=== PATIENT | female | born 1945 | race Caucasian/White ===

== ENCOUNTER 2022-04-01 14:30 | Outpatient (CLI) | payer MEDICARE, BC, SELFPAY ==
--- OUTSIDE RECORDS SUMMARY | 2022-04-01 14:40 | XMS_ITS | Clinical Summary ---
:1945 Author Organization [facility] [place] [address] Care Team Providers Name Role Phone Unavailable Primary Care Provider Unavailable Allergies Active Allergy Reactions Severity Noted Date Comments Cefaclor 10/20/2006 Dust Mites 09/12/2007 Iodinated Contrast Media Diarrhea, Vomiting Low 12/31/2020 PATIENT HAS BEEN GETTING VISIPAQ UE W/O COMPLICATIO N. Lisinopril Cough 09/12/2007 Pioglitazone Nausea Only, Tremors 09/12/2007 Sulfa (Sulfonamide 09/12/2007 Antibiotics) Medications Medication Sig Dispensed Refills Start Date End Date Status ASPIRIN 81 MG take 1 tablet 90 3 07/25/2008 A ctive TABIndications: Type II (81mg) by oral or unspecified type route once daily diabetes mellitus without mention of complication, not stated as uncontrolled blood-glucose by Not Applicable 1 Device 0 11/25/2019 Active meterIndications: route. Dispense Controlled type 2 meter, test diabetes mellitus strips, lancets without complication, covered by pt with long-term current ins. E11.9 IDDM use of insulin (HC) type II - Test 3 times/day. Uncontrolled dm lancetsIndications: Type Test 3 times per 300 Each 3 02/26/20 20 Active 2 diabetes mellitus day. FREESTYLE without complication, LITE. 28 gauge As with long-term current covered by ins. use of insulin (HC) flash glucose scanning As directed. 1 Each 0 12/22/2020 Active reader (FreeStyle Aileen 2 [place]) miscIndications: Type 2 diabetes mellitus without complication, with long-term current use of insulin (HC) Ozempic penIndications: INJECT 1 MG 9 mL 3 03/04/2021 Active Type 2 diabetes mellitus SUBCUTANEOUS without complication, WEEKLY with long-term current use of insulin (HC) CaneIndications: Sprain Single Point Cane 1 Each 0 04/21/20 21 Active of medial collateral for home use. For ligament of left knee, 4-6 weeks. 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 use of insulin (HC) Insulin [place], USE FOUR TIMES 400 Each 3 07/02/2021 Active Disposable, (bd insulin DAILY WITH pen needle uf mini) 31 INSULIN gauge x 09/29Indications: Type 2 diabetes mellitus with complication (HC) benzonatate (TESSALON) TAKE 1 30 Capsule 0 08/23/2021 Active 100 mg CAPSULE(100 MG) capsuleIndications: BY MOUTH THREE Cough TIMES DAILY NEEDED FOR COUGH hydroCHLOROthiazide TAKE 1 TABLET BY 90 Tablet 2 08/23/2021 Active (HCTZ) 25 mg MOUTH EVERY DAY tabletIndications: Essential hypertension amLODIPine (NORVASC) 2.5 TAKE 1 TABLET BY 90 Tablet 2 08/23/19 22 Active mg tabletIndications: MOUTH EVERY DAY Essential hypertension blood sugar diagnostic TEST THREE TIMES 300 Each 3 08/23/2021 Active (FreeStyle Lite Strips) DAILY stripIndications: Type 2 diabetes mellitus without complication, with long-term current use of insulin (HC) insulin degludec, U-200, Inject 82 units 54 mL 0 2 Active (Tresiba FlexTouch subcutaneous once U-200) 200 unit/mL (3 daily. mL) penIndications: Type 2 diabetes mellitus without complication, with long-term current use of insulin (HC) atorvastatin (LIPITOR) Take 0.5 Tablets 45 Tablet 3 10/28/2021 Active 40 mg tabletIndications: (20 mg) by mouth Hyperlipidemia, at bedtime. unspecified hyperlipidemia type omeprazole (PRILOSEC) 20 Take 1 Capsule 90 Capsule 2 2 Active mg Delayed-Release (20 mg) by mouth capsuleIndications: once daily before Abdominal pain, a meal. epigastric, Esophagitis FreeStyle Aileen 2 CHANGE SENSOR 6 Each 3 11/17/2021 Active SensorIndications: Type EVERY 14 DAYS 2 diabetes mellitus without complication, with long-term current use of insulin (HC) mirtazapine (REMERON) 15 Take 1 Tablet (15 90 Tablet 1 022 Active mg tabletIndications: mg) by mouth at Anxiety bedtime. losartan (COZAAR) 100 mg Take 1 Tablet 90 Tablet 3 11/17/2021 Active tabletIndications: (100 mg) by mouth Hypertension, once daily. unspecified type, Type 2 diabetes mellitus without complication, with long-term current use of insulin (HC) insulin aspart, U-100, 50 units before 60 mL 3 12/14/2021 Active (NovoLOG Flexpen U-100 each meal Insulin) 100 unit/mL (3 mL) penIndications: Type 2 diabetes mellitus without complication, with long-term current use of insulin (HC) ferrous sulfate 325 mg Take 1 Tablet 90 Tablet 3 12/22/2021 Active delayed release (325 mg) by mouth tabletIndications: once daily with a Anemia due to acute meal. blood loss cyclobenzaprine Take 1 Tablet (5 15 tablet. 0 12/24/2021 Active (FLEXERIL) 5 mg mg) by mouth 2 tabletIndications: Neck times daily if muscle spasm needed for Muscle Spasm. furosemide (LASIX) 20 mg Take 1 Tablet (20 90 Tablet 3 022 Active tabletIndications: mg) by mouth Bilateral lower every morning. extremity edema, Weight gain, ARMSTRONG (dyspnea on exertion) DULoxetine (CYMBALTA) 60 Take 1 Capsule 90 Capsule 2 2 Active mg Delayed-release (60 mg) by mouth capsuleIndications: once daily. Dysthymic disorder metoprolol succinate Take 1 Tablet (50 90 Tablet 2 12/28/2021 Active (TOPROL XL) 50 mg mg) by mouth once sustained-release daily. tabletIndications: Essential hypertension loratadine (CLARITIN) 10 Take 1 Tablet (10 90 Tablet 2 022 Active mg tabletIndications: mg) by mouth once Allergic rhinitis, daily. unspecified seasonality, unspecified trigger hydrocortisone 2.5% Apply topically 60 g 0 12/28/2021 Active creamIndications: to affected Hemorrhoids, unspecified area(s) 2 times hemorrhoid type daily. As need for hemorrhoid Active Problems Problem Noted Date 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 08/25/2021 Depression, recurrent 08/25/2021 Type 2 diabetes mellitus with complication 11/05/2020 MCI (mild cognitive impairment) 09/18/2019 Overview: Memory testing on 09/18/19 Screening for colon cancer. BE every 5 years per GI. N ext due 201703/09/2017 Moderate osteopenia 11/28/2016 Type 2 diabetes mellitus without complication 12/02/19 16 Lung nodule. Follow up CT June 2016 stable. No fur ther imaging needed 06/02/2015 Overview: 4 mm nodule. Recommend repeat in 12 brunilda hs. Left phone message and sent mychart note. Kady Sawyer M.D. 06/02/2015 4:55 PM Dupuytren's contracture of both hands 12/25/2013 De Quervain's tenosynovitis, right 12/25/2013 Routine general medical examination at [facility] 02/19/2013 Overview: Nl dexa 2009. Consider repeat age 71/ Gr sebastian Sawyer M.D. 02/19/2013 11:48 AM SLEEP APNEA 11/2001 AHI -43, repeat 03/2904/16/2012 Unspecified cataract 05/10/2011 Sensorineural hearing loss, bilateral 01/17/2008 Dysthymic disorder 09/12/2007 Tobacco use disorder 09/12/2007 Personal history of colonic polyps 09/12/2007 Overview: Colonoscopy 05/2013 Incomplete to 18 cm, sharp angulation, recommend BE BE 07/2013 diverticulosis Unspecified essential hypertension 10/20/2006 Other and unspecified hyperlipidemia 10/20/2006 Resolved Problems Problem Noted Date Resolved Date SLEEP APNEA 11/2001 AHI -43 09/12/2007 04/16/2012 Encounters Date Type Specialty Care Team Description 03/11/2022 Office Visit Abraham Michael, AuD Hearing Aid 03/11/2022 Travel 03/03/2022 Refill Meera Richardson, Refill Request (Tresiba DO Flextouch U-200 ) 01/18/2022 Phone Office Visit Meera Phillips NP Failed Appointment 01/18/2022 Travel 01/13/2022 Office Visit Abraham Michael AuD Hearing Problem; Hearing Aid (Consult) 01/13/2022 Office Visit Abraham Michael AuD Hearing Problem 01/13/2022 Travel from Last 3 Months Immunizations Name Administration Dates Next Due AMB Influenza, IIV3 (Age >=3 04/17/2013 years)(Flu Clinic Only) Amb Influenza, Inactivated AIIV4 (Age 0904/01/2020 65+ Years) Preserv Free COVID-19 vaccine (Moderna 06/06/2021, 09/29/2020, 08/31/2020 100mcg/0.5mL) PF, MDV COVID-19 vaccine (Oree 10/28/2021 30mcg/0.3mL) 12YO+ FLIP-SUCROSE PF, MDV Hepatitis A (Adult) 08/05/2005, 10/06/2003 Hepatitis B (Adult) 09/03/2019, 02/25/2019 Influenza A (H1N1), Inactivated (Age 1207/03/2009 >=3 Years) Influenza Virus, Unspecified 04/16/2018 Influenza, High-dose Inactivated 04/20/2016, 06/18/2015, Influenza, IIV3 (Age >=3 years) 04/16/2018, 04/17/2013, 1210/2011, 05/10/2011, 05/14/2010, 05/25/2009, 04/29/2008, 06/04/2007, 07/21/2006, 08/06/2004, 05/23/2003, 05/20/2002 Influenza, Inactivated AIIV4 (Age 65+ 04/14/2021 Years) Preserv Free Influenza, Inactivated IIV3 (Age 65+ 04/01/2019, 03/28/2018, 06/02/2017 Years) Preserv Free Pneumococcal Poly,23-Valent 01/31/2012, 05/07/1998 (Pneumovax) Pneumococcal conj 13-Valent (Prevnar 06/18/2015 13) Td (Age >=7 Years) 05/07/1998 Td, Preservative Free (age >= 7 09/12/2007 Years) Tdap 01/31/2012 Zoster (Shingrix-RZV, recombinant) 07/03/2019, 04/01/2019 Zoster (Zostavax-ZVL, live) 09/03/2010 Family History Medical History Relation Name Comments Diabetes Brother 5 Type 1; eventual ly needed kidney transplant for diabetic nep hropathy Stroke Father Cancer-breast Maternal Aunt Cancer Mother stomach Cancer-breast Sister 3 Cancer-ovarian No Family History Relation Name Status Comments Brother 1 Alive Brother 2 (Age 28) diabetic Brother 3 (Age 32) MVA Brother 4 Alive Brother 5 Father Maternal Aunt Mother Sister 1 Alive Sister 2 Alive Sister 3 Social History Tobacco Use Types Packs/Day Years Used Date Current Every Day Smoker Cigarettes 0.25 20 Sta rted: 04/30/1967 Smokeless Tobacco: Never Used Tobacco Cessation: Ready to Quit: No; Co unseling Given: Yes Alcohol Use Standard Drinks/Week Comments Not Currently 0 (1 standard drink = 0.6 oz pure alcoho l) Alcohol Habits Answer Date Recorded How often do you have a drink containing alcohol? 2-4 times a month 11/14/2018 How many drinks containing alcohol do you have on a 1 or 2 11/14/2018 typical day when you are drinking? How often do you have six or more drinks on one Never 11/14/2018 occasion? Comment: Not asked Sex Assigned at Date Recorded Not on file COVID-19 Exposure Response Date Recorded In the last 10 days, have you been in contact with No / Unsu re 03/11/2022 11:59 AM CDT someone who was confirmed or suspected to have Coronavirus/COVID-19? 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 Respiratory Rate 16 04/20/2021 12:15 PM CDT Oxygen Saturation 99% 12/28/2021 11:21 AM CDT Inhaled Oxygen Concentration - - Weight 77.1 kg (170 lb) 12/28/2021 11:21 AM CDT Height 167.6 cm (5' 6) 08/04/2021 11:50 AM ONCOLOGY SPECIALIST Body Mass Index 27.44 08/04/2021 11:50 AM ONCOLOGY SPECIALIST Plan of Treatment Upcoming Encounters Date Type Specialty Care Team Description 04/07/2022 Office Visit Abraham Michael, AuD [facility] [address] [place] [phone] (Wo rk) Health Maintenance Due Date Last Done Comments Mammogram for age 45-75 12/03/2021 12/03/2020, 08/01/2018, 06/30/2017, Additional history exists Medicare Wellness for age 65+ 12/03/2021 12/03/2020, 2019, 05/27/2015 Tetanus booster 01/30/2022 01/31/2012, 09/12/2007, 05/07/1998 Influenza for age 65+ 03/17/2022 04/14/2021, 04/01/2020, 04/01/2019, Additional history exists Depression screening for age 12+ 07/01/2022 07/01/2021, , 06/28/2021, Additional history exists BMI (ht and wt on same day) for 08/04/2022 08/04/2021, 03/18, age 18+ 12/03/2020, Additional history exists Colonoscopy through age 75 05/18/2026 05/18/2021, , 03/10/2020, Additional history exists Lipids for age 45-75 08/04/2026 08/04/2021, 03/04/2020, 02/25/2019, Additional history exists Tdap Completed 01/31/2012 Pneumococcal series for age 65+ Completed 06/18/2015, 01/14, 05/07/1998 Zoster (shingles) series for age Completed 07/03/2019, , 50+ 09/03/2010 Hepatitis C screening for age Completed 11/10/2020, 2018 18-79 DEXA/DXA scan for age 65+ Completed 01/06/2021, 12/01/2015 , 01/07/2010 COVID-19 vaccine series Completed 10/28/2021, 06/06/2021, 09/29/2020, Additional history exists Goals Goal Patient Goal Associated Recent Patient-Stated? Author Type Problems Progress BLOOD Blood Pressure No Alberto, PRESSURE-SHIRLEYPamela LAU BP LESS THAN 130/80 Results Not on filefrom Last 3 Months Insurance Payer Benefit Plan / Subscriber ID Effective Dates Phone Addre ss Type Group MEDICARE PART A MEDICARE PART A [id number] 2011-Presen ATTN: CLAIMS - HB USE ONLY HB ONLY t [address] [place] [address] MEDICARE PART B MEDICARE PART B [id number] 2011-Presen ATTN: CLAIMS - HB USE ONLY HB ONLY t [address] [place] [address] [place] BL[place]OSS [id number] 2016-Presen [address] [address] [place], [place] [id number] BL[employer] [place]OSS BLUE CROSS [id number] 2016-[employer]en [address] [address] [place], [place] [id number] Advance Directives Documents on File Type Date Recorded 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
--- OUTSIDE RECORDS SUMMARY | 2022-04-01 14:40 | XMS_ITS | Continuity of Care Document ---
:1945 Author Organization [facility] Address [address] [address] [place] [address] Phone Care Team Providers Name Role Phone Leann PRASAD, Cassia Unavailable Unavailable Allergies, Adverse Reactions, Alerts Substance Reaction Status Criticality Iodinated Contrast Media Active No Info rmation pioglitazone Active No Information lisinopril Active No Information cefaclor Active No Information Sulfa (Sulfonamide Antibiotics) Active No Information Medications Medication Instructions Dosage Effective Dates Status Comment s (start - stop) Tresiba FlexTouch U-100 inject by 0.00 - Active insulin 100 unit/mL (3 mL) subcutaneous route subcutaneous pen as per insulin protocol loratadine 10 mg tablet take 2 tablet by 20 MG - Act charly oral route every day losartan 50 mg tablet take 1 tablet by 50 MG - Activ e oral route every day Kapspargo Sprinkle 50 mg take 1 capsule by 50 MG - A ctive capsule,extended release oral route every day Ozempic 1 mg/dose (2 mg/1.5 inject (1MG) by - Active mL) subcutaneous pen subcutaneous route injector every week on the same day of each week mirtazapine 7.5 mg tablet take 1 Tablet by 7.5 MG - A ctive oral route every day at bedtime omeprazole 20 mg take 1 capsule by 20 MG - Active capsule,delayed release ORAL route every day before a meal atorvastatin 40 mg tablet take 1 tablet by 40 MG - A ctive ORAL route every day amlodipine 2.5 mg tablet take 1 tablet by 2.5 MG - Ac tive oral route every day Vazalore 81 mg capsule - Active cyclobenzaprine 5 mg tablet take 1 tablet by 5 MG - Active oral route every day as needed hydrochlorothiazide 25 mg take 1 tablet by 25 MG - A ctive tablet oral route every day insulin aspart U-100 100 inject by 0.00 - Active unit/mL subcutaneous subcutaneous route cartridge per prescriber's instructions. Insulin dosing requires individualization. duloxetine 60 mg take 2 capsule by 120 MG - Active capsule,delayed release ORAL route every day Procedures Procedure Date Telephone E&M III 21-30 Min GENET Colonoscopy Flex; W/remov Les- Colonoscopy Flex; W/bx 1/mx Level Iv-surg Path Gross/micro Telephone E&M III 21-30 Min GENET Advance Directives Directive Yes / No Effective Date File Name No Information Encounters Encounter Practice Location Reason(s) Diagnoses Date Provider Provide rs Description For Visit Copied on Encounter [facility] No Information Hanouneh Digestive MD Greta ALVARADO, [address] [address], [facility] s, [place], [place], [place] [id number], [address], [place] [facility] tel:+2 [place], [place], [phone] , [place]. tel:[phone] Telephone E&M [facility] GI Liver cirrhosis [facility] Referring III 21-30 Min Digestive Symptoms secondary to Pr ovider: MD DE LEÓN Health CHRISTIANO, or NASHUnspecified 1 [address] Refe rral [address] Concerns cirrhosis of [address] [place]. [address], (chief liver [facility] complaint) Street s, [place], [place], [place] [id number], [address], [place] tel:+2 [place], [place], [id number] , [place]. tel: [phone] [facility] No Information Odilia RESIDENT CARE ASSISTANT Ref erring Digestive [facility] Essie. Provider: Health CHRISTIANO, Endoscopy [address] [facility] [address], [address] [place], [place], [place], 500, [address] [place] [id number], [place] [address], [place], [place], [place] tel: [phone] s, [place], [id number] , [place]. [address] tel: . [phone] tel:[phone] [facility] Sessile colonic Nov- Fuller Ref erring [facility] polypAbnormal MD [place]. Provid er: Greta ALVARADO, Endoscopy results of liver [address] [facility] PO [address] Center function [place]. [address], [facility] neoplasm of [place], [place], [place], transverse 500, [id number], colonBenign [facility] [place] neoplasm of [place], [place], tel: sigmoid [phone] colonPersonal , [place]. history of tel: colonic polyps [id number] [facility] No Information Leann Digestive MD Greta ALVARADO, [address] [address], [facility] Street s, [place], [place], [place] [id number], [address], [place] tel: [place], [place], [id number] , [place]. tel: [phone] Telephone E&M [facility] GI Abnormal LFTs Ivon gunn Referring III 21-30 Min Digestive Symptoms Provide r: MD GENET ALVARADO, or [address] Concerns [address] [facility] [place], [address], (chief [place] [address] [facility] complaint) Street [place], [place], [place], [facility] [address], [id number], [address] [place] , [place], tel: [place], [phone] tel:[phone] , [place]. [id number] tel: [phone] [facility] No Information [facility] MD Greta ALVARADO, [address] [address], [facility] s, [place], [place], [place] [id number], [address], [place] [facility] tel: is, [place], [id number] , [place]. tel: [phone] Family History Family Member Type Diagnosis Age At Onset Mother Problem (finding) Stomach Sister Problem (finding) Brother Problem (finding) Diabetes mellitus Daughter Problem (finding) Alive and well Son Problem (finding) Alive and well Mother Problem (finding) Brother Problem (finding) Colon polyps Brother Problem (finding) Father Problem (finding) Immunizations Vaccine Date Status Comments SARS-COV-2 (COVID-19) vaccine, administered N ote: [facility] bi-directional mRNA, spike protein, LNP, interf simona ; Source: Other preservative free, 100 mcg or 50 Registry mcg dose influenza, seasonal vaccine, administered Not e: [facility] bi-directional quadrivalent, adjuvanted, .5mL i nterface ; Source: Other dose, preservative free Registry SARS-COV-2 (COVID-19) vaccine, administered N ote: [facility] bi-directional mRNA, spike protein, LNP, interf simona ; Source: Other preservative free, 100 mcg or 50 Registry mcg dose SARS-COV-2 (COVID-19) vaccine, administered N ote: [facility] bi-directional mRNA, spike protein, LNP, interf simona ; Source: Other preservative free, 100 mcg/0.5mL Registry dose SARS-COV-2 (COVID-19) vaccine, administered N ote: [facility] bi-directional mRNA, spike protein, LNP, interf simona ; Source: Other preservative free, 100 mcg or 50 Registry mcg dose SARS-COV-2 (COVID-19) vaccine, administered N ote: [facility] bi-directional mRNA, spike protein, LNP, interf simona ; Source: Other preservative free, 100 mcg/0.5mL Registry dose influenza, seasonal vaccine, administered Not e: [facility] bi-directional quadrivalent, adjuvanted, .5mL i nterface ; Source: Other dose, preservative free Registry Engerix-B administered Note: [facility] bi-di rectional interface ; Sour ce: Other Registry zoster vaccine recombinant administered Note: [facility] bi-directional interface ; Sour ce: Other Registry Seasonal trivalent influenza administered Not e: [facility] bi-directional vaccine, adjuvanted, interface ; Source: Other preservative free Registry zoster vaccine recombinant administered Note: [facility] bi-directional interface ; Sour ce: Other Registry Engerix-B administered Note: [facility] bi-di rectional interface ; Sour ce: Other Registry Seasonal trivalent influenza administered Not e: [facility] bi-directional vaccine, adjuvanted, interface ; Source: Other preservative free Registry Seasonal trivalent influenza administered Not e: [facility] bi-directional vaccine, adjuvanted, interface ; Source: Other preservative free Registry influenza, high dose seasonal, administered N ote: [facility] bi-directional preservative-free interface ; So urce: Other Registry Prevnar 13 administered Note: [facility] bi-di rectional interface ; Sour ce: Other Registry influenza, high dose seasonal, administered N ote: [facility] bi-directional preservative-free interface ; So urce: Other Registry influenza, high dose seasonal, administered N ote: [facility] bi-directional preservative-free interface ; So urce: Other Registry Pneumovax 23 administered Note: [facility] bi-di rectional interface ; Sour ce: Other Registry tetanus toxoid, reduced administered Note: [place] IC bi-directional diphtheria toxoid, and acellular interface ; Source: Other pertussis vaccine, adsorbed Gretta stry Influenza, seasonal, injectable, administered Note: [facility] bi-directional preservative free interface ; So urce: Other Registry zoster vaccine, live administered Note: [facility] bi-directional interface ; Sour ce: Other Registry Influenza, seasonal, injectable administered Note: [facility] bi-directional interface ; Sour ce: Other Registry Afluria Qd administered Note: [facility] bi-directional interface ; Sour ce: Other Registry Novel [id number], all administered Not e: [facility] bi-directional formulations interface ; Sour ce: Other Registry Influenza, seasonal, injectable administered Note: [facility] bi-directional interface ; Sour ce: Other Registry Influenza, seasonal, injectable administered Note: [facility] bi-directional interface ; Sour ce: Other Registry tetanus and diphtheria toxoids, administered Note: [facility] bi-directional adsorbed, preservative free, for interface ; Source: Other adult use (5 Lf of tetanus Eyad try toxoid and 2 Lf of diphtheria toxoid) Influenza, seasonal, injectable administered Note: [facility] bi-directional interface ; Sour ce: Other Registry Influenza, seasonal, injectable administered Note: [facility] bi-directional interface ; Sour ce: Other Registry Havrix administered Note: [facility] bi-di rectional interface ; Sour ce: Other Registry Influenza, seasonal, injectable administered Note: [facility] bi-directional interface ; Sour ce: Other Registry Influenza, seasonal, injectable administered Note: MIIC bi-directional interface ; Sour ce: Other Registry Payers Payer name Insurance type Covered alliance party ID Authorization(s ) [employer] [place] [employer] [id number] Social History Type Description Quantity Date Captured Comments Alcohol Use Details Unknown Caffeine Use Details Unknown Tobacco Use Status Smoking Status No Information Sex Female Chief Complaint And Reason For Visit No Information Reason For Referral Reason For Referral No Information Plan Of Treatment Date Type Action Status Referral Ordered: ordered Hepatic Function Panel Appointment date/timeframe: 12/30/2021 Referral Ordered: ordered Hepatoma Protocol Appointment date/timeframe: First Available Referral Ordered: ordered AFP, Serum, Tumor Marker Appointment date/timeframe: 12/30/2021 Referral Ordered: ordered PT/INR Appointment date/timeframe: 12/30/2021 Referral Ordered: ordered CBC Appointment date/timeframe: 12/30/2021 Referral Ordered: ordered Creatinine Appointment date/timeframe: 12/30/2021 Referral Ordered: ordered Ultrasound Liver Appointment date/timeframe: 12/30/2021 Referral Ordered: ordered Liver Biopsy With Ultrasound Omer ordonez Appointment date/timeframe: 04/14/2021 Referral Ordered: ordered Antinuclear Antibodies, DAVID, IFA Appointment date/timeframe: 04/14/2021 Referral Ordered: ordered [id number]-1-[id number] Phenotype Appointment date/timeframe: 04/14/2021 Referral Ordered: ordered Antimitochondrial Ab (AMA), Qn Appointment date/timeframe: 04/14/2021 Referral Ordered: ordered Ferritin Appointment date/timeframe: 04/14/2021 Referral Ordered: ordered Colonoscopy Appointment date/timeframe: 05/18/2021 Referral Ordered: ordered Actin (Smooth Muscle) Antibody Appointment date/timeframe: 04/14/2021 History Of Present Illness Encounter Date Complaint History Of Present I llness GI Symptoms or Concerns 75 year old pema kiran consents for telephone followup of biopsy p roven SHIPMAN cirrhosis. Please refer to [facility] kennedy notes for full details. 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 Serology work-up of chronic liver disease negative. Patient do es not drink alcohol. She has poorly controlle d type II diabetes with HGA1C in 9ish range. Patient underwent percutaneous liver b iopsy on 04/20/2021. Path revealed steatohepat itis, characterized by: Moderate (55%) steat osis, Mild inflammatory activity (EZEKIEL activi ty score 4 out of 8 based on 2 points for stea tosis, 1 point for inflammation and 1 p oint for ballooning. Fibrosis/Stage: Cirr hosis (stage 4 of 4). Liver disease is com pensated. No history of ascites, GI bleeding or encephalopathy. PLT count within normal limits at 357,000. 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 No nathaniel radiographic evidence of portal h ypertension. Last US 12/2020 showed no fo jovanni liver lesion. Patient feels OK at baseline today. She has no complaints. Denies a bdominal pain, nausea or vomiting. No changes in bowel habits. No blood in the stool. Weight is stable. She is working with PCP and dietiti an to better manage diabetes.Medical his tory is significant for advanced adenomatous polyps. Last colonoscopy 05/2021. She is due for colonoscopy for polyp surveillance in thre e years. GI Symptoms or Concerns This is a 75 yea r old woman consents for telephone consultati on of abnormal LFT's. Consult requested by Dr Meera Richardson. Daughter is present on the phone. Review of medical chart with A llina reveals that patient has had chronically abnormal LFT's at least since 2014. Labs josh k in 2014 revealed ALK 135, ALT 53 and AST 42, Total Bilirubin 0.5. Labs in 11/2019 show ed ALK 119, ALT 40 and AST 36. Labs in 10/2020 showed ALK 245, ALT 70 and AST 83. Most recent labs 03/16/2021 showed ALK 206, ALT 77 and AST 127, Total Bili 1.1, albumin 3.3 and tota l protein 7.3. PLT count normal at 357,000. P atient is asymptomatic from liver standpoin ts. No known family history of liver dis ease. Patient's medical history is r emarkable for type II diabetes, hypertensi on and hyperlipidemia. She weighs 157 lb. No hi story of alcohol misuse. Patient drinks two g lasses of wine a month. Patient feels OK at baseline. Denies abdominal pain, nausea or vomi ting. No changes in bowel habits. Weight is re latively stable. US . Coarsen ed hepatic echotexture. Nodular contour of t he liver. The findings may reflect cirrhosis. P lease correlate with any pertinent clinical o r laboratory values.2. Surgically absent ga llbladder, spleen, and distal pancreas.3. R ight renal cyst. No hydronephrosisCT . Interval development of mild inflammatory stranding within the right lat eral conal fat adjacent to the hepatic flexure. Increased size of mildly prominent retroperit santana lymph nodes. Normal appendix. Findings a re concerning for colitis although colonoscopy should be considered for further evaluation. 2. Coarsened hepatic density consistent w ith chronic steatosis. Suspicion of perhaps mild developing cirrhosisColonoscopy 02/2020 revealed two small tubular adenom as, and one large 20 mm tubular adenoma and one small sessile serrated adenoma CT abdomen 1 . Hepatic steatosis2. Status p ost distal pancreatectomy, splenectomy, cholecy stectomy and hysterectomy.CT abdo men . Diffuse hepatic steatosis pa tchy geographic areas of focal fat deposition . No suspicious intrahepatic mass. Functional Status Date Functional Assessment No Information Instructions Date Instruction Additional Informati on Colon Cancer Prevention Related to Sessi le colonic polyp Colon Polyps Related to Sessile c olonic polyp Assessments Type Assessment Date No Information Patient Care Teams Name Effective Dates (start - stop) Status M chente No Information
--- OUTSIDE RECORDS SUMMARY | 2022-04-01 14:40 | XMS_ITS ---
:1945 Author Care Team Providers Name Role Phone DR. MISTY SANDOVAL Referring Provider [phone] DR. MARILEE LOVELACE Referring Provider [phone] Allergies Code Code System Name Reaction Severity Status Onset Ceclor ? ? Active ? House Dust Mite ? ? Active ? Iodinated Contrast Media ? ? Activ e ? 32874 RxNorm Lisinopril ? ? Active ? 87131 RxNorm Pioglitazone ? ? Active ? Sulfa (Sulfonamide ? ? Active ? Antibiotics) Notes: 03/28/2016: STATUS: Inactive Medications Name Status Start Date Stop Date ? ? amlodipine 2.5 mg tablet Active ? Not ramsey ilable Take 1 tablet every day by oral route. aspirin Active ? Not available Take 1 tablet daily atorvastatin 40 mg tablet Active ? Not av ailable Take 1 tablet every day by oral route. BD Insulin Pen Needle UF Active ? Not ramsey ilable blood sugar diagnostic strips Active ? No t available ciprofloxacin 250 mg tablet Active ? Not available Take 1 tablet every 12 hours by oral route. cyanocobalamin (vit B-12) 1,000 mcg sublingual tablet Active ? Not available Place by sublingual route. cyclobenzaprine 5 mg tablet Active ? Not available Take 1 tablet twice a day by oral route. duloxetine 60 mg capsule,delayed release Active ? Not available Take 1 capsule every day by oral route. fexofenadine 180 mg tablet Active ? Not a vailable Take 1 tablet every day by oral route. flash glucose scanning reader Active ? No t available flash glucose sensor kit Active ? Not ramsey ilable fluticasone propionate 50 mcg/actuation nasal spray,suspension A ctive ? Not available [place] 2 sprays every day by intranasal route. hydrochlorothiazide 25 mg tablet Active ? Not available Take 1 tablet every day by oral route. insulin aspart U-100 100 unit/mL subcutaneous cartridge Active ? Not available Inject by subcutaneous route. insulin degludec (U-200) 200 unit/mL (3 mL) subcutaneous pen Act charly ? Not available Inject by subcutaneous route. insulin needles (disposable) Active ? Not available lancets Active ? Not available losartan 50 mg tablet Active ? Not availa ble Take 1 tablet every day by oral route. metoprolol succinate Active ? Not availab le omeprazole 20 mg capsule,delayed release Active ? Not available Take 1 capsule every day by oral route. ondansetron 4 mg disintegrating tablet Active ? Not available Take 2 tablets every 12 hours by oral route. semaglutide 1 mg/dose (2 mg/1.5 mL) subcutaneous pen injector Ac tive ? Not available Inject by subcutaneous route. Sure Edge Blood Glucose Meter Active ? No t available Vitamin D3 25 mcg (1,000 unit) capsule Active ? Not available Take by oral route. Problems Name Status Onset Date Source ? 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 Myofascial Pain Active 08/01/2018 ? Arthralgia of Temporomandibular Joint Active 08/01/2018 ? Procedures Date Name Performed by ? ? [place] Teeth Extraction Information not available Results Lab Results None recorded. Past Encounters None recorded. Social History Tobacco Smoking Status Current Every Day Smoker Vaccine List Vaccine Type influenza, injectable, quadrivalent 04/16/2018 Plan of Care Reminders Provider Appointments None recorded. ? ? Lab None recorded. ? ? Referral None recorded. ? ? Procedures None recorded. ? ? Surgeries None recorded. ? ? Imaging None recorded. ? ? Vitals Height Weight BMI Blood Pressure 5 ft 6 in 153 lbs 24.7 kg/m2 144/86 mm[Hg]
[2022-04-01 19:26] LABS: Albumin* 3.5 g/dL (3.3-5.0); Chloride* 103 mmol/L (96-114); Sodium* 136 mmol/L (135-149)
[2022-04-01 19:27] LABS: Potassium* 3.7 mmol/L (3.6-5.1)
[2022-04-01 19:29] LABS: Alanine Aminotransferase* 33 U/L (4-35); Alkaline Phosphatase* 301 U/L (40-150); Aspartate Amino Transferase* 77 U/L (12-35); Bilirubin Direct* 0.6 mg/dL (0.0-0.5); Bilirubin Total* 1.4 mg/dL (0.1-1.5); Blood Urea Nitrogen* 14 mg/dL (7-30); Carbon Dioxide* 24 mmol/L (20-32); Creatinine* 0.9 mg/dL (0.5-1.5); Estimated Glomerular Filt Rate 67 ml/min; Glucose* 277 mg/dL (60-115); Total Protein* 7.7 g/dL (6.0-8.3)
[2022-04-01 19:30] LABS: Calcium* 8.1 mg/dL (8.4-10.6)
== END 2022-04-01 14:31 | disposition home or self-care (01) ==
LOC: NFLDREF 14:31
PROVIDERS: PCP Family Medicine; Visit Provider Family Medicine
DX: I10 Essential (primary) hypertension (principal); E78.5 Hyperlipidemia, unspecified; E11.9 Type 2 diabetes mellitus without complications; K74.60 Unspecified cirrhosis of liver
CPT/HCPCS: 80048; 80076

== ENCOUNTER 2022-04-05 10:45 | Outpatient (RCR) | payer MEDICARE, BC, SELFPAY | END 2022-07-19 10:54 | disposition home or self-care (01) | PROVIDERS: PCP Family Medicine; Visit Provider Family Medicine | DX: M25.561 Pain in right knee (principal); M25.562 Pain in left knee; Z51.89 Encounter for other specified aftercare | CPT/HCPCS: 97110; 97162 ==

== ENCOUNTER 2022-05-11 15:39 | Emergency (ER) | payer MEDICARE, BC, SELFPAY ==
[2022-05-11 16:23] VITALS: BP 177/71; PULSE 89; RESP 16; TEMP 36.5; O2SAT 97; BMI 25.2
[2022-05-11 18:23] VITALS: BP 176/80; PULSE 80; RESP 18; O2SAT 98
--- NOTE | 2022-05-11 18:31 | CRLHL7_ITS ---
For Patients: As a result of the Century Cures Act, medical imaging exams and procedure reports are released immediately into your electronic medical record. You may view this report before your referring provider. If you have questions, please contact your health care provider. Indication: Abdominal pain and distention for 2 weeks Technique: Volumetric multidetector CT images of the abdomen and pelvis were obtained after the administration of intravenous contrast. 79 cc Isovue 370 low osmolar intravenous contrast Comparison: CT abdomen and pelvis March 09, 2021 Findings: The lung bases are clear. There is marked hepatic enlargement with hepatic cirrhosis. 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 There is prior cholecystectomy with marked reservoir dilatation of the common bile duct. There is no evidence of radiopaque calculus within the bile ducts. There is likely prior splenectomy similar to prior exam. There is moderate chronic gastritis change appreciated with redemonstration of large multiloculated duodenal diverticulum similar to previous exam. The pancreas is moderately atrophic with mild prominence of the main pancreatic duct. The adrenal glands are unremarkable. Cystic changes of the kidneys are appreciated. There is no evidence of radiopaque calculus or obstructive uropathy. There is moderate to severe focal thickening and pericolonic inflammatory change of the cecum, ascending colon and transverse colon with dilated fluid-filled small bowel with enteric mucosal hyperemia and thickening. The appendix is unremarkable. There are moderate reactive retroperitoneal lymph nodes similar to previous exam. The aorta is non aneurysmal with scattered atherosclerotic calcification. The solid pelvic viscera are grossly unremarkable. There is trace perihepatic ascites fluid without evidence of significant ascites in the 4 quadrants of the abdomen. The anterior abdominal wall is grossly intact. The lumbar vertebral body heights are stable from comparison with minimal endplate Schmorl`s defects. There is no significant spondylolisthesis or displaced fracture. Impression: Redemonstration of severe hepatic cirrhosis with extensive portal vein collateral formation with prominent paraesophageal, short gastric, epigastric varices with a large recannulated umbilical vein and caput medusae transformation seen at the umbilicus. Moderate thickening and pericolonic inflammatory change of the ascending colon, cecum and proximal transverse colon which may represent developing colitis changes. There are additional somewhat prominent loops of central small bowel with minimal mucosal hyperemia which may represent additional enteritis changes. Moderate chronic gastritis changes with stable duodenal diverticulum. Prior cholecystectomy with marked reservoir dilatation of the common bile duct. Prior splenectomy. Please note that all CT scans at this facility use dose modulation, iterative reconstruction, and/or weight-based dosing when appropriate to reduce radiation dose to as low as reasonably achievable. Dictated by Jeferson Keen MD @ 05/11/2022 8:45:06 PM (Electronically Signed)
--- NOTE | 2022-05-11 18:35 | ED.NAVMDI ---
HPI - Nausea/Vomiting/Diarrhea General Time Seen by Provider: 18:36 Date Seen: 05/11/22 Chief complaint: Diarrhea Stated complaint: Stomach Problems/Diarrhea Time Seen by Provider: 05/11/22 18:25 Source: patient, RN notes reviewed and old records reviewed Mode of arrival: ambulatory Limitations: no limitations History of Present Illness HPI Narrative: Patient is a 76-year-old female with a history of cirrhosis of the liver, hyperlipidemia, type 2 diabetes and hypertension who comes to the emergency room for evaluation of abdominal pain. Patient states that she is had a larger abdomen for quite some time and has not increased suddenly in size. She does note that over the past few weeks she has increasing abdominal pain that is rather diffuse. She is having occasional episodes of diarrhea that are nonbloody. She notes no fever or chills. She notes a 7 lb weight loss this week because she has no appetite and has not been eating. Associated nausea: Yes Related Data Home Medications Medication Instructions Recorded Confirmed duloxetine 60 mg capsule,delayed 60 mg PO QDAY 01/13/22 04/01/22 release pen needle, diabetic 31 gauge x #50 ea 01/13/22 04/01/2209/29 (BD Ultra-Fine Mini Pen Needle) atorvastatin 40 mg tablet 20 mg PO QDAY 02/18/22 04/01/22 metoprolol succinate 50 mg 50 mg PO QDAY 02/18/22 04/01/22 tablet,extended release 24 hr mirtazapine 15 mg tablet 15 mg PO . 02/18/22 04/01/22 aspirin 81 mg chewable tablet 81 mg PO QDAY 04/01/22 04/01/22 blood sugar diagnostic (FreeStyle #10 ea 04/01/22 04/01/22 Lite Strips) flash glucose scanning reader #1 ea 04/01/22 (FreeStyle Aileen 2 [place]) flash glucose sensor (FreeStyle #1 ea 04/01/22 04/01/22 Aileen 2 Sensor kit) insulin degludec 200 unit/mL (3 50 unit subcut .HS 04/01/22 04/01/22 mL) subcutaneous pen (Tresiba FlexTouch U-200 insulin) losartan 50 mg tablet 50 mg PO DAILY 04/01/22 04/01/22 Previous Rx's Medication Instructions Recorded diphenoxylate-atropine 2.5 1 tab PO BID-TID #90 tabs 04/01/22 mg-0.025 mg tablet (Lomotil) furosemide 40 mg tablet (Lasix) 40 mg PO QAM #30 tabs 04/01/22 insulin aspart U-100 100 unit/mL 25 unit (0.25 mL) subcut TID #15 mL 04/01/22 (3 mL) subcutaneous pen (Novolog Flexpen U-100 Insulin aspart) Allergies Allergy/AdvReac Type Severity Reaction Status Date / Time Cephalosporins Allergy Mild Unknown Verified 05/11/22 16:27 gadodiamide Allergy Mild Unknown Verified 05/11/22 16:27 Sulfa (Sulfonamide Allergy Mild Unknown Verified 05/11/22 16:27 Antibiotics) cefaclor [From Ceclor] Allergy Unknown Unknown Verified 05/11/22 16:27 Review of Systems Status of ROS: Reports: 10 or more systems reviewed and unremarkable except as noted in History and below Narrative: A loss of appetite Const: Denies: fever or chills Eyes: Denies: change in vision ENMT: Denies: throat pain or difficulty swallowing Cardio: Denies: chest pain, palpitations or shortness of breath with exertion Resp: Denies: shortness of breath or cough GI: Reports: abdominal pain, nausea and diarrhea; Denies: difficulty swallowing : Denies: painful urination Musculo: Denies: back pain PFSH PFS Medical History (Updated 02/20/22 @ 21:17 by Wei Johnson MD) 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 History of colon polyps (03/10/20) History of solitary pulmonary nodule Hyperlipidemia Hypertension 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 Major depression, recurrent Mild cognitive impairment Obstructive sleep apnea Osteopenia Sensorineural hearing loss Type 2 diabetes mellitus Surgical History (Updated 02/09/22 @ 12:17 by Baljit Castano) History of arthroscopy of shoulder History of cholecystectomy (1984) History of hysterectomy History of oophorectomy (1997) History of resection of pancreas (1984) History of vaginal hysterectomy (1997) Status post cholecystectomy Family History (Updated 01/13/22 @ 23:45 by Wei Johnson MD) Other Colon cancer Diabetes Stroke Social History (Updated 02/20/22 @ 21:11 by Wei Johnson MD) Narrative: , 3 kids, smoker, retired, cognitive impairment Smoking Status: Current every day smoker How often do you have a drink containing alcohol: never AUDIT-C Alcohol total score: 0 Non-prescribed substance use: denies use Little interest or pleasure in doing things: several days Feeling down, depressed, or hopeless: several days Exam Narrative: Exam Narrative: Alert and oriented. Very pleasant. Nontoxic in appearance. Oral cavity moist mucous membranes Neck is supple without lymphadenopathy Heart with regular rate and rhythm Lungs lungs are clear to auscultation. Abdomen is protrude print it is firm diffuse tenderness. No rebound tenderness. Bowel sounds are present. Const: Vital Signs, click to edit/add: Vital Signs - 24 hr 05/11/22 16:23 05/11/22 18:23 05/11/22 20:30 Temperature 97.7 F Pulse Rate [Pulse Oximeter] 89 80 84 Respiratory Rate 16 18 18 Blood Pressure [Ri ght Upper Arm] 177/71 H 176/80 H 183/88 H Pulse Oximetry 97 98 97 Oxygen Delivery Me thod Room Air Room Air Room Air 05/11/22 19:00 05/11/22 20:00 Temperature Pulse Rate [Pulse Oximeter] 81 84 Respiratory Rate 18 Blood Pressure [Ri ght Upper Arm] 179/81 H 176/80 H Pulse Oximetry 97 97 Oxygen Delivery Me thod Documenting provider has reviewed patient's vital signs: yes Course Course Hospital Course: Will place IV, morphine and Zofran for discomfort. Will give 500 mL normal saline. Will check CBC, comprehensive panel, amylase, lipase, CRP, urinalysis. Plan on CT of the abdomen once creatinine returns and is in normal limits. Vital Signs Vital signs: Initial Vital Signs Temperature 97.7 F 05/11/22 16:23 Temperature Source Temporal Artery Scan 05/11/22 16:23 Pulse Rate 89 05/11/22 16:23 Respiratory Rate 16 05/11/22 16:23 Blood Pressure 177/71 H 05/11/22 16:23 Blood Pressure Mean 106 05/11/22 16:23 Blood Pressure Position Sitting 05/11/22 16:23 Pulse Oximetry 97 05/11/22 16:23 Oxygen Delivery Method 05/11/22 16:23 Vital Signs Temperature 97.7 F 05/11/22 16:23 Pulse Rate 89 05/11/22 16:23 Respiratory Rate 16 05/11/22 16:23 Blood Pressure 177/71 H 05/11/22 16:23 Pulse Oximetry 97 05/11/22 16:23 Oxygen Delivery Method 05/11/22 16:23 Temperature 97.7 F 05/11/22 16:23 Pulse Rate 84 05/11/22 20:30 Respiratory Rate 18 05/11/22 20:30 Blood Pressure 183/88 H 05/11/22 20:30 Pulse Oximetry 97 05/11/22 20:30 Oxygen Delivery Method 05/11/22 20:30 MDM - Nausea/Vomiting/Diarrhea MDM Narrative Medical decision making narrative: 1. Abdominal pain 2. Disposition-this case will be signed out to my partner Dr. Lundberg for evaluation and review of labs and radiological studies and disposition. Lab Data Labs: Lab Results 05/11/22 05/11/22 05/11/22 Range/Units 19:00 19:00 19:00 WBC 13.72 H (4.50-11.00) K/uL RBC 4.41 (4.00-5.20) m/uL Hgb 13.3 (12.0-16.0) gm/dL Hct 40.0 (33.0-51.0) % MCV 91 (80-100) fL MCH 30 (26-34) pg MCHC 33 (32-36) gm/dL RDW Coeff of Annie 17.2 H (11.5-15.5) % Plt Count 268 (140-440) K/uL Neut % (Auto) 64.7 (42.0-72.0) % Lymph % (Auto) 19.2 L (20-44) % Lander % (Auto) 13.2 H (0.0-11.0) % Eos % (Auto) 2.1 (0.0-7.0) % Baso % (Auto) 0.7 (0.0-3.0) % Neut # (Auto) 8.90 H (1.7-7.0) K/uL Lymph # (Auto) 2.60 (0.90-2.90) K/uL Lander # (Auto) 1.80 H (0.00-0.90) K/UL Eos # (Auto) 0.30 (0.00-0.50) K/uL Baso # (Auto) 0.10 (0.00-0.30) K/uL Abs Immat Gran (auto) 0.02 (0.00-0.30) K/uL Sodium 136 (135-149) mmol/L Potassium 3.1 L (3.6-5.1) mmol/L Chloride 103 (96-114) mmol/L Carbon Dioxide 21 (20-32) mmol/L BUN 26 (7-30) mg/dL Creatinine 1.1 (0.5-1.5) mg/dL Estimated Creat Clear 42.97 Estimated GFR 52 ml/min Glucose 191 H (60-115) mg/dL Lactate 1.7 (0.5-1.9) mmol/L Calcium 9.0 (8.4-10.6) mg/dL Total Bilirubin 1.2 (0.1-1.5) mg/dL Direct Bilirubin 0.3 (0.0-0.5) mg/dL AST 62 H (12-35) U/L ALT 32 (4-35) U/L Alkaline Phosphatase 301 H (40-150) U/L C-Reactive Protein < 0.5 L (0.5-1.0) mg/dL Total Protein 8.3 (6.0-8.3) g/dL Albumin 3.8 (3.3-5.0) g/dL Amylase 56 (18-89) U/L Lipase 103 (23-300) U/L Discharge Plan Discharge Prescriptions: No Action (DME) pen needle, diabetic [BD Ultra-Fine Mini Pen Needle] 31 gauge x 3/16 needle See Rx Instructions .ROUTE .MEDSUPPLY Qty: 50 Label Comments: USE FOUR TIMES DAILY WITH INSULIN Rx Instructions: As directed duloxetine 60 mg capsule,delayed release(DR/EC) 60 mg PO QDAY atorvastatin 40 mg tablet 20 mg PO QDAY metoprolol succinate 50 mg tablet extended release 24 hr 50 mg PO QDAY Label Comments: TAKE 1 TABLET BY MOUTH EVERY DAY mirtazapine 15 mg tablet 15 mg PO .hs losartan 50 mg tablet 50 mg PO DAILY aspirin 81 mg tablet,chewable 81 mg PO QDAY (DME) FreeStyle Aileen 2 [place] Misc See Rx Instructions .ROUTE .MEDSUPPLY Qty: 1 Label Comments: DIRECTED Rx Instructions: As directed (DME) FreeStyle Aileen 2 Sensor Kit See Rx Instructions .ROUTE .MEDSUPPLY Qty: 1 Label Comments: CHANGE SENSOR EVERY 14 DAYS. Rx Instructions: As directed (DME) FreeStyle Lite Strips Strip See Rx Instructions .ROUTE .MEDSUPPLY Qty: 10 Label Comments: TEST THREE TIMES DAILY Rx Instructions: As directed furosemide [Lasix] 40 mg tablet 40 mg PO QAM Qty: 30 1RF diphenoxylate-atropine [Lomotil] 2.5-0.025 mg tablet 1 tab PO BID-TID Qty: 90 0RF insulin aspart U-100 [Novolog Flexpen U-100 Insulin] 100 unit/mL (3 mL) insulin pen 25 unit subcut TID Qty: 15 0RF Tresiba FlexTouch U-200 200 unit/mL (3 mL) insulin pen 50 unit subcut .HS Follow Up/Referrals: Meera Richardson DO [Staff Physician] -
--- OUTSIDE RECORDS SUMMARY | 2022-05-11 18:50 | XMS_ITS ---
:1945 Author Care Team Providers Name Role Phone DR. MISTY SANDOVAL Referring Provider [phone] DR. MARILEE LOVELACE Referring Provider [phone] Allergies Code Code System Name Reaction Severity Status Onset Ceclor ? ? Active ? House Dust Mite ? ? Active ? Iodinated Contrast Media ? ? Activ e ? 78465 RxNorm Lisinopril ? ? Active ? 65086 RxNorm Pioglitazone ? ? Active ? Sulfa [...] nasal spray,suspension A ctive ? Not available [place] 2 sprays every day by intranasal route. [...] Procedures Date Name Performed by ? ? Calvin Teeth Extraction Information not available Results Lab [...]
--- OUTSIDE RECORDS SUMMARY | 2022-05-11 18:50 | XMS_ITS | Continuity of Care Document ---
:1945 Author Organization [facility] Address [address] [address] [place] [address] Phone Care Team Providers Name Role Phone [...] rs Description For Visit Copied on Encounter [facility] No Information Hanouneh Digestive MD Greta ALVARADO, [address] [address], [facility] s, [place], [place], [place] [id number], [address], [place] [facility] tel:+2 [place], [place], [phone] , [place]. tel:+ [phone] Telephone E&M [facility] GI Liver cirrhosis [facility] Referring III 21-30 Min Digestive Symptoms secondary to Pr ovider: MD DE LEÓN Health CHRISTIANO, or NASHUnspecified 1 [address]y. Refe rral [address] Concerns cirrhosis of [address]. [address], (chief liver [facility] complaint) Street s, [place], [place], [place] [id number], [address], [place] tel:+2 [place], [place], [phone] , [place]. 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 Provider: Health CHRISTIANO, Endoscopy [address] [facility] [address], [address], [address] [place], [place], [place], [address], [address] [place] [id number], [place] [address], [place], [place], [place] tel: [phone] [place], [place], [phone] , [place]. [address] tel: . [phone] tel:[phone] [facility] Sessile colonic Nov- Fuller Ref erring Digestive [facility] polypAbnormal MD [place]. Provid er: Greta ALVARADO, Endoscopy results of liver 1 [address] Re [facility] [address] Center function [place] Self. [address], [facility] neoplasm of [place], [place], [place], transverse 500, [id number], colonBenign [facility] [place] neoplasm of [place], [place], tel: sigmoid [phone] colonPersonal , [place]. history of tel: colonic polyps [phone] [facility] No Information Leann Digestive MD Greta ALVARADO, [address] [address], [facility] [address] s, [place], [place], [place] [id number], [address], [place] tel: [place], [place], [phone] , [place]. tel: [phone] Telephone E&M [facility] GI Abnormal LFTs Ivon gunn Referring III 21-30 Min Digestive Symptoms Provide r: MD GENET ALVARADO, or [address] Meera [address] Concerns [address] [place], [address], (chief [place] [address] [facility] complaint) [address] [place], [place], [place], [facility] [address], [id number], [address] [place] , [place], [place]: [place], [phone]. [phone] tel:7 , [place]. [phone] tel: [phone] [facility] No Information [facility] MD Greta ALVARADO, [address] [address], [facility] s, [place], [place], [place] [id number], [address], [place] [facility] tel: is, [place], [phone] , [place]. tel: [phone] Family History Family Member Type Diagnosis Age [...] Other Registry tetanus toxoid, reduced administered Note: OK IC bi-directional diphtheria toxoid, and acellular interface [...] interface ; Sour ce: Other Registry Novel [id number], all administered Not e: MIIC bi-directional formulations [...] Registry Payers Payer name Insurance type Covered green party ID Authorization(s ) Blue Cross [place] Blue BL [id number] Social History Type Description Quantity Date Captured [...] IFA Appointment date/timeframe: 04/14/2021 Referral Ordered: ordered [id number] Phenotype Appointment date/timeframe: 04/14/2021 Referral Ordered: ordered [...] Ultrasound/CT showed coarsened hepatic density 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 No [...]
--- OUTSIDE RECORDS SUMMARY | 2022-05-11 18:50 | XMS_ITS | Clinical Summary ---
:1945 Author Organization [employer] [facility] [place] [address] Care Team Providers Name Role Phone Pcp, No Primary Care Provider Unavailable Allergies Active Allergy [...] 0 12/22/2020 Active reader (FreeStyle Aileen 2 [place]) miscIndications: Type 2 diabetes mellitus without complication, [...] sugars 2 diabetes mellitus per without complication, instrumentation specialist's with long-term current directions. use of insulin (HC) Insulin [place], USE FOUR TIMES 400 Each 3 07/02/2021 [...] right 12/25/2013 Routine general medical examination at [facility] 02/19/2013 Overview: Nl dexa 2009. Consider repeat [...] Encounters Date Type Specialty Care Team Description 05/10/2022 Telephone Pcp, No Appointment Req uest 04/07/2022 Office Visit Abraham Michael, [facility] (Fitting) 04/07/2022 Travel 03/11/2022 Office Visit Abraham Michael, AuD Hearing Aid 03/11/2022 Travel 03/03/2022 Refill Meera Richardson DO Refi ll Request (Tresiba Flextouch U-200 ) from Last 3 Months Immunizations Name Administration Dates Next Due AMB Influenza, IIV3 (Age >=3 04/17/2013 years)(Flu Clinic Only) Amb Influenza, Inactivated AIIV4 (Age 0904/01/2020 65+ Years) Preserv Free COVID-19 vaccine (Moderna 06/06/2021, 09/29/2020, 08/31/2020 100mcg/0.5mL) PF, MDV COVID-19 vaccine (Zelnas 10/28/2021 30mcg/0.3mL) 12YO+ FLIP-SUCROSE PF, MDV Hepatitis A (Adult) 08/05/2005, 10/06/2003 Hepatitis B (Adult) 09/03/2019, 02/25/2019 Influenza A (H1N1), Inactivated (Age 1207/03/2009 >=3 Years) Influenza Virus, Unspecified 04/16/2018 Influenza, High-dose Inactivated 04/20/2016, 06/18/2015, Influenza, IIV3 (Age >=3 years) 04/16/2018, 04/17/2013, 10/2011, 05/10/2011, 05/14/2010, 05/25/2009, 04/29/2008, 06/04/2007, 07/21/2006, 08/06/2004, [...] Assigned at Date Recorded Not on file Obstetrics History Last Filed Vital Signs Vital Sign Reading Time Taken Comments Blood Pressure 117/57 12/28/2021 11:21 AM CDT Pulse 66 12/28/2021 11:21 AM CDT Temperature 36.6 ??C (97.9 ??F) 07/13/2021 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 Respiratory Rate 16 04/20/2021 12:15 PM CDT Oxygen Saturation 99% 12/28/2021 11:21 AM CDT Inhaled Oxygen Concentration - - Weight 77.1 kg (170 lb) 12/28/2021 11:21 AM CDT Height 167.6 cm (5' 6) 08/04/2021 11:50 AM SCHOOL SERVICES OFFICER Body Mass Index 27.44 08/04/2021 11:50 AM SCHOOL SERVICES OFFICER Plan of Treatment Upcoming Encounters Date Type Specialty Care Team Description 06/13/2022 Office Visit Abraham Michael, AuD [address] [place], [place] [phone] (Wo rk) Health Maintenance Due [...] 12/01/2015 , 01/07/2010 COVID-19 vaccine series Completed 04/05/2022, 10/28/2021, 06/06/2021, Additional history exists Goals Goal Patient Goal Associated Recent Patient-Stated? Author Type Problems Progress BLOOD Blood Pressure No Alberto, PRESSURE-SHIRLEY LAU BP LESS THAN 130/80 Results Not on filefrom Last 3 Months Insurance Payer Benefit Plan / Subscriber ID Effective Dates Phone Addre ss Type Group MEDICARE PART A MEDICARE PART A [id number] 2011-[employer] ATTN: CLAIMS - HB USE ONLY HB ONLY t [address] [place] [address] MEDICARE PART B MEDICARE PART B [id number] 2011-[employer] ATTN: CLAIMS - HB USE ONLY HB ONLY t [address] [place] [address] BLUE CROSS [place] BLUE CROSS [id number] 2016-[employer] [address] [address] [place], [place] [id number] BLUE CROSS BLUE CROSS [id number] 2016-[employer] [address] [address] [place], [place] [id number] Advance Directives Documents on File Type Date Recorded Patient Phlebotomist Associate Explanati on Healthcare Directive 11/02/2006 HEALTH CARE DIRECTIVE, [facility], 10/15 Care Teams Electrical Drafter Relationship Specialty Start Date End Date Pcp, No PCP - General 04/07/22 .
[2022-05-11] MEDS: 0.9 % SODIUM CHLORIDE 500 ML 500 ML IV (18:57)
[2022-05-11] MEDS: ONDANSETRON 2 MG/ML inj 4 MG IVP (18:58)
[2022-05-11] MEDS: MORPHINE 4 MG/ML INJ IVP (18:58)
[2022-05-11 19:00] VITALS: BP 179/81; PULSE 81; O2SAT 97
[2022-05-11 19:10] LABS: Basophils Percent Auto 0.7 % (0.0-3.0); Eosinophils Percent Auto 2.1 % (0.0-7.0); Hemoglobin* 13.3 gm/dL (12.0-16.0); Immature Granulocytes Abs Auto 0.02 K/uL (0.00-0.30); Lactate* 1.7 mmol/L (0.5-1.9); Lymphocytes Percent Auto 19.2 % (20-44); Mean Corpuscular HGB Conc 33 gm/dL (32-36); Mean Corpuscular Hemoglobin 30 pg (26-34); Mean Corpuscular Volume 91 fL (80-100); Monocytes Percent Auto 13.2 % (0.0-11.0); Neutrophils Percent Auto 64.7 % (42.0-72.0); Platelet Count* 268 K/uL (140-440); RDW Coefficient of Variation % 17.2 % (11.5-15.5); Red Blood Count 4.41 m/uL (4.00-5.20); White Blood Count* 13.72 K/uL (4.50-11.00)
[2022-05-11 19:14] LABS: Slide Review Reflex No
[2022-05-11 19:28] LABS: Chloride* 103 mmol/L (96-114)
[2022-05-11 19:29] LABS: Albumin* 3.8 g/dL (3.3-5.0); Sodium* 136 mmol/L (135-149)
[2022-05-11 19:30] LABS: Potassium* 3.1 mmol/L (3.6-5.1)
[2022-05-11 19:32] LABS: Alkaline Phosphatase* 301 U/L (40-150); Amylase* 56 U/L (18-89); Aspartate Amino Transferase* 62 U/L (12-35); Bilirubin Direct* 0.3 mg/dL (0.0-0.5); Bilirubin Total* 1.2 mg/dL (0.1-1.5); Blood Urea Nitrogen* 26 mg/dL (7-30); Carbon Dioxide* 21 mmol/L (20-32); Creatinine* 1.1 mg/dL (0.5-1.5); Est. Creatinine Clearance* 42.97; Estimated Glomerular Filt Rate 52 ml/min; Glucose* 191 mg/dL (60-115); Total Protein* 8.3 g/dL (6.0-8.3)
[2022-05-11 19:33] LABS: Alanine Aminotransferase* 32 U/L (4-35); Lipase* 103 U/L (23-300)
[2022-05-11 19:37] LABS: C Reactive Protein* < 0.5 mg/dL (0.5-1.0)
[2022-05-11 20:00] VITALS: BP 176/80; PULSE 84; RESP 18; O2SAT 97
[2022-05-11 20:30] VITALS: BP 183/88; PULSE 84; RESP 18; O2SAT 97
[2022-05-11] MEDS: HYDROmorphone 0.5 mg/0.5 ml inj IVP (20:32)
== END 2022-05-11 21:57 | disposition home or self-care (01) ==
PROVIDERS: Family Medicine; Emergency Provider Family Medicine; PCP Family Medicine
DX: R19.7 Diarrhea, unspecified (principal)
CPT/HCPCS: 36415; 74177; 80053; 81001; 82150; 82248; 83605; 83690; 85025; 86140; 94761; 96374; 96375; 99284; 99285; J1170; J2270; J2405; J7120; Q9967

== ENCOUNTER 2022-06-27 10:45 | Outpatient (CLI) | payer MEDICARE, BC, SELFPAY ==
--- NOTE | 2022-06-27 11:00 | CRLHL7_ITS ---
For Patients: As a result of the Century Cures Act, medical imaging exams and procedure reports are released immediately into your electronic medical record. You may view this report before your referring provider. If you have questions, please contact your health care provider. INDICATION: LIVER CIRRHOSIS SECONDARY TO SHIPMAN COMPARISON: none TECHNIQUE: Real time matos scale imaging and color Doppler analysis was performed of the right upper quadrant. FINDINGS: Cirrhotic liver morphology noted with lobular outer contour and diffusely coarsened internal echotexture. No suspicious intrahepatic mass. There is a normal appearance of the hepatic IVC and proximal abdominal aorta. There is moderate ascites. The gallbladder is absent. The common bile duct is of normal size and measures 8 mm in diameter at the level of the marta hepatis. The visualized pancreas appears normal. There is no evidence of a stone or hydronephrosis within the right kidney. Right renal cyst is present measuring 2.9 cm. The right kidney measures 11.0 cm in length. IMPRESSION: Cirrhotic liver with moderate ascites. Dictated by Wei Seals MD @ 06/27/2022 1:03:32 PM (Electronically Signed)
== END 2022-06-27 10:46 | disposition home or self-care (01) ==
LOC: US 10:47
PROVIDERS: Visit Provider Internal Medicine Gastroenterology
DX: K74.60 Unspecified cirrhosis of liver (principal); K75.81 Nonalcoholic steatohepatitis (NASH); R18.8 Other ascites
CPT/HCPCS: 76705

== ENCOUNTER 2022-07-09 14:45 | Inpatient (IN) | payer MEDICARE, BC, SELFPAY ==
[2022-07-09] VITALS (10 sets, daily range): BP systolic 122–194; BP diastolic 62–96; PULSE 79–98; RESP 18–26; TEMP 36.6–36.8; O2SAT 86–96; BMI 29.4; BMI 28.3
--- NOTE | 2022-07-09 15:20 | CRLHL7_ITS ---
For Patients: As a result of the Century Cures Act, medical imaging exams and procedure reports are released immediately into your electronic medical record. You may view this report before your referring provider. If you have questions, please contact your health care provider. INDICATION: Shortness of breath TECHNIQUE: Single view chest. FINDINGS: The lungs are clear. The heart, mediastinum and pulmonary vessels are of normal size. There is no evidence of pleural disease. IMPRESSION: Negative chest. Dictated by Matilda Law MD @ 07/09/2022 3:55:41 PM (Electronically Signed)
--- OUTSIDE RECORDS SUMMARY | 2022-07-09 15:30 | XMS_ITS | Continuity of Care Document ---
:1945 Author Organization [facility] Address [address] [address] [place] [address] Phone Care Team Providers Name Role Phone Cassia Noriega MD Unavailable Unavailable Allergies, Adverse Reactions, Alerts Substance [...] Procedure Date Telephone E&M III 21-30 Min MD DE LEÓN Colonoscopy Flex; W/remov Les- Colonoscopy Flex; W/bx 1/mx Level Iv-surg Path Gross/micro Telephone E&M III 21-30 Min MD DE LEÓN Advance Directives Directive Yes / No Effective Date File Name No Information Encounters Encounter Practice Location Reason(s) Diagnoses Date Provider Provide rs Description For Visit Copied on Encounter [facility] Greta ALVARADO, [address] [address], [facility] [place], [place], [place], [place] [id number], [address], [place] tel:+2 [place], [place], [phone] , [place]. tel:+ [phone] [facility] [place] Chronic liver [facility] disease MD Greta ALVARADO, [address] [address], [facility] [place], [place], [place], [place] [id number], [address], [place] tel:+2 [place], [place], [phone] , [place]. tel:+ [phone] Telephone E&M [facility] GI Liver cirrhosis [facility] Referring III 21-30 Min Digestive Symptoms secondary to Pr ovider: MD DE LEÓN [facility], or NASHUnspecified 1 [address]. Refe rral [address] Concerns cirrhosis of [address]. [address], (chief liver [facility] complaint) Street [place], [place], [place], [place] [id number], [address], [place] tel: is, [place], [phone] , [place]. tel: [phone] [facility] [place] No Information Nov-0 Odilia [employer] Ref erring [facility] Essie. Provider: Health [facility], Endoscopy [address] [place] [address], [address], [address] [place], [place], [place], [address], [address] [place] [id number], [place] [address], [place], [place], [place] tel: [phone] s, [place], [id number] , [place]. [phone] tel: . [phone] tel:[phone] [facility] [place] Sessile colonic Nov-0 Fuller Ref erring [facility] polypAbnormal MD Franklin. Provid er: Health PA, Endoscopy results of liver 1 [address] Re ferral [address] Center function [place] [address]. [address], studies[address]ign [address] [facility] neoplasm of [place], [place], [place], transverse 500, [id number], colonBenign [place] neoplasm of [place], [place], tel: sigmoid [phone] colonPersonal , [place]. history of tel: colonic polyps [id number] [facility] No Information [facility], [address] [address], [place] [address] [place], [place], [place], [place] [id number], [address], [place] tel: is, [place], [phone] , [place]. tel: [phone] Telephone E&M [facility] GI Abnormal LFTs Mar- Ivon gunn Referring III 21-30 Min Digestive Symptoms MD Provide r: MD GENET ALVARADO, or [address] Meera [address] [place], [address], (chief Criselda [address] [place] complaint) [address] [place], [place], [place], [place] [address], [id number] [place] , [place], tel: is, [place], [address]. [phone] tel: , . [phone] tel: [phone] [facility] No Information [facility] MD Greta ALVARADO, [address]. [address] [address], [facility] [place], [place], [place], [facility] [id number], [address], [facility] tel: is, [place], [phone] , . tel: [phone] Family History Family Member Type Diagnosis Age [...] Other Registry tetanus toxoid, reduced administered Note: ID IC bi-directional diphtheria toxoid, and acellular interface [...] interface ; Sour ce: Other Registry Novel [id number], all administered Not e: MIIC bi-directional formulations [...] Registry Payers Payer name Insurance type Covered democrat ID Authorization(s ) Blue Brandon Torres Martinez Liban DEWITT [id number] Social History Type Description Quantity Date Captured Comments Alcohol Use Details Unknown Caffeine Use Details Unknown Tobacco Use Status Smoking Status No Information Sex Female Chief Complaint And Reason For Visit No Information Reason For Referral Reason For Referral No Information Plan Of Treatment Date Type Action Status Referral Ordered: ordered Hepatic Function Panel Appointment date/timeframe: 06/15/2022 Referral Ordered: ordered Hepatoma Protocol Appointment date/timeframe: 06/15/2022 Referral Ordered: ordered AFP, Serum, Tumor Marker Appointment date/timeframe: 06/15/2022 Referral Ordered: ordered PT/INR Appointment date/timeframe: 06/15/2022 Referral Ordered: ordered CBC Appointment date/timeframe: 06/15/2022 Referral Ordered: ordered Creatinine Appointment date/timeframe: 06/15/2022 Referral Ordered: ordered Ultrasound Liver Appointment date/timeframe: 06/15/2022 Referral Ordered: ordered Liver Biopsy With Ultrasound Omer ordonez Appointment date/timeframe: 04/14/2021 Referral Ordered: ordered Antinuclear Antibodies, DAVID, IFA Appointment date/timeframe: 04/14/2021 Referral Ordered: ordered [id number]-[id number]-Vvqvjnumglo Phenotype Appointment date/timeframe: 04/14/2021 Referral Ordered: ordered Antimitochondrial Ab (AMA), Qn Appointment date/timeframe: 04/14/2021 Referral Ordered: ordered Ferritin Appointment date/timeframe: 04/14/2021 Referral Ordered: ordered Colonoscopy Appointment date/timeframe: 05/18/2021 Referral Ordered: ordered Actin (Smooth Muscle) Antibody Appointment date/timeframe: 04/14/2021 Appointment Jess Rocha BOOKED History Of Present Illness Encounter Date Complaint History Of Present I llness GI Symptoms or Concerns 75 year old woma n consents for telephone followup of biopsy p [...] Ultrasound/CT showed 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 No [...] 7.3. PLT count normal at 357,000. P gibran is asymptomatic from liver standpoin ts. No [...]
[2022-07-09 15:58] LABS: Basophils Percent Auto 0.8 % (0.0-3.0); Eosinophils Percent Auto 2.7 % (0.0-7.0); Hematocrit 26.5 % (33.0-51.0); Hemoglobin* 8.4 gm/dL (12.0-16.0); Immature Granulocytes Pct Auto 0.2 %; Lymphocytes Percent Auto 13.5 % (20-44); Mean Corpuscular HGB Conc 32 gm/dL (32-36); Mean Corpuscular Hemoglobin 30 pg (26-34); Mean Corpuscular Volume 93 fL (80-100); Monocytes Percent Auto 9.4 % (0.0-11.0); Neutrophils Percent Auto 73.4 % (42.0-72.0); Platelet Count* 242 K/uL (140-440); RDW Coefficient of Variation % 16.4 % (11.5-15.5); Red Blood Count 2.85 m/uL (4.00-5.20); White Blood Count* 13.67 K/uL (4.50-11.00)
[2022-07-09 15:59] LABS: HCO3 VBG 19 mmol/L (21-28); Lactate* 2.2 mmol/L (0.5-1.9); PCO2 VBG 32 mmHG (40-50); PO2 VBG 68.9 mmHG (25-47); pH VBG 7.381 (7.32-7.43)
[2022-07-09 16:02] LABS: Slide Review Reflex No
--- NOTE | 2022-07-09 16:15 | ED_ITS ---
HPI - General Adult General Date Seen: 07/09/22 Chief complaint: Shortness of Breath/Dyspnea Stated complaint: Shortness of breath, diarrhea Time Seen by Provider: 07/09/22 15:06 Source: patient and family Mode of arrival: ambulatory Limitations: no limitations History of Present Illness HPI narrative: Patient is a 76-year-old woman who is here with her son and her son's for evaluation of shortness of breath, diarrhea with possible blood loss. She was hospitalized at [facility] a few weeks ago and had a duodenal ulcer banded. She was started on Protonix although she admits she stopped taking that because she says it was giving her diarrhea. She reports multiple episodes of diarrhea which she says are black. She has abdominal distension which she says is been ongoing for a year and half, her son-in-law, who is a roster clerk in [place], says that she did have a CT scan which did not show any ascites, she does have liver enlargement related to SHIPMAN, but does not sound like there were any other abnormalities noted. She does feel like her abdominal distention is worse lately as well. She notes diarrhea which she reports is black, no visible blood. Her son-in-law reports that her weight previously was 70 kilos, her current weight is 185 kilos. She does feel that she has significant water weight. Her son-in-law says that he does not think that she takes her medica tions regularly. She lives independently, she has a son who lives locally who tries to help but it sounds as if he is not able to provide quite as much ill but she probably needs. Her apartment is a little disorderly and apparently not very clean. Related Data Home Medications Medication Instructions Recorded Confirmed duloxetine 60 mg capsule,delayed 60 mg PO QDAY 01/13/22 07/09/22 release pen needle, diabetic 31 gauge x #50 ea 01/13/22 05/24/2209/29 (BD Ultra-Fine Mini Pen Needle) atorvastatin 40 mg tablet 20 mg PO QDAY 02/18/22 07/09/22 blood sugar diagnostic (FreeStyle #10 ea 04/01/22 05/24/22 Lite Strips) flash glucose scanning reader #1 ea 04/01/22 05/24/22 (FreeStyle Aileen 2 [place]) flash glucose sensor (FreeStyle #1 ea 04/01/22 05/24/22 Aileen 2 Sensor kit) insulin degludec 200 unit/mL (3 50 unit subcut .HS 04/01/22 05/24/22 mL) subcutaneous pen (Tresiba FlexTouch U-200 insulin) amlodipine 2.5 mg tablet 2.5 mg PO QDAY 05/16/22 07/09/22 loratadine 10 mg tablet 10 mg PO QDAY 05/16/22 05/24/22 losartan 100 mg tablet 100 mg PO QDAY 05/16/22 05/24/22 clobetasol 0.05 % scalp solution 1 applic topical PRN 05/24/22 05/24/22 triamcinolone acetonide 0.1 % 1 applic topical PRN 05/24/22 05/24/22 topical cream hydrochlorothiazide 25 mg tablet 25 mg PO DAILY 07/09/22 07/09/22 metoprolol succinate 50 mg 50 mg PO DAILY 07/09/22 07/09/22 tablet,extended release 24 hr mirtazapine 15 mg tablet (Remeron) 15 mg PO DAILY 07/09/22 07/09/22 Previous Rx's Medication Instructions Recorded furosemide 40 mg tablet (Lasix) 40 mg PO QAM #30 tabs 04/01/22 insulin aspart U-100 100 unit/mL 25 unit (0.25 mL) subcut TID #15 mL 04/01/22 (3 mL) subcutaneous pen (Novolog Flexpen U-100 Insulin aspart) hyoscyamine sulfate 0.125 mg tablet 0.125 - 0.25 mg PO BID-QID PRN for 05/11/22 abdominal cramping #30 tabs metoprolol succinate 100 mg 100 mg PO QDAY #30 tabs 05/24/22 tablet,extended release 24 hr mirtazapine 30 mg tablet 30 mg PO QHS #30 tabs 05/24/22 ondansetron HCl 8 mg tablet 8 mg PO TID PRN nausea and 05/24/22 vomiting #30 tabs diphenoxylate-atropine 2.5 1 tab PO BID-TID #90 tabs 06/01/22 mg-0.025 mg tablet (Lomotil) Allergies Allergy/AdvReac Type Severity Reaction Status Date / Time Cephalosporins Allergy Mild Unknown Verified 05/24/22 11:55 gadodiamide Allergy Mild Unknown Verified 05/24/22 11:55 Sulfa (Sulfonamide Allergy Mild Unknown Verified 05/24/22 11:55 Antibiotics) cefaclor [From Ceclor] Allergy Unknown Unknown Verified 05/24/22 11:55 Review of Systems Status of ROS: Reports: 10 or more systems reviewed and unremarkable except as noted in History and below [facility] Medical History Chronic diarrhea 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 History of colon polyps (03/10/20) History of solitary pulmonary nodule Hyperlipidemia Hypertension 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 Major depression, recurrent Mild cognitive impairment Obstructive sleep apnea Osteopenia Sensorineural hearing loss Type 2 diabetes mellitus Surgical History History of arthroscopy of shoulder History of cholecystectomy (1984) History of hysterectomy History of oophorectomy (1997) History of resection of pancreas (1984) History of vaginal hysterectomy (1997) Status post cholecystectomy Family History Other Colon cancer Diabetes Stroke Social History Narrative: , 3 kids, smoker, retired, cognitive impairment Smoking Status: Current every day smoker How often do you have a drink containing alcohol: never AUDIT-C Alcohol total score: 0 Non-prescribed substance use: denies use Little interest or pleasure in doing things: several days Feeling down, depressed, or hopeless: several days Exam Narrative: Exam Narrative: Vital signs as noted above. In general, an alert, Elderly woman, tachypneic, increased work of breathing. Head: Normocephalic, atraumatic. Eyes: Pupils are equal reactive. Extraocular movements are full. Conjunctivae are Anicteric. Not significantly pale. ENT: Mucous membranes are A little dry. Neck: Supple without lymphadenopathy. Heart: Regular rate and rhythm. No obvious murmur. Lungs: Lungs are clear, she prefers to lay on her right side as it is easier to breathe. Breath sounds are decreased on the right. Abdomen: Abdomen is distended, nontender To palpation. Rectal exam: Stool is light brown to yellowish. He negative. No melena. Extremities: Bilateral lower extremity pitting edema. No erythema. Neurologic: Patient is alert and oriented to person and place. Speech is fluent. Face is symmetric. Moves all extremities equally. Affect: Normal. Skin: Warm and dry. Well perfused. Const: Vital Signs, click to edit/add: Vital Signs - 24 hr 07/09/22 14:52 07/09/22 16:33 07/09/22 16:30 Temperature 97.9 F 98.3 F Pulse Rate [Pulse Oximeter] 91 Respiratory Rate 26 H Blood Pressure [Ri ght Upper Arm] 188/85 H Pulse Oximetry 96 86 L Oxygen Delivery Me thod Room Air Room Air Oxygen Flow Rate 1 07/09/22 16:20 Temperature Pulse Rate [Pulse Oximeter] 98 Respiratory Rate 20 Blood Pressure [Ri ght Upper Arm] 194/86 H Pulse Oximetry 91 Oxygen Delivery Me thod Room Air Oxygen Flow Rate Documenting provider has reviewed patient's vital signs: yes Course Course Hospital Course: Patient had an IV placed, Reevaluation(s) Reevaluation #1: She had an EKG which by my review showed a normal sinus rhythm, ventricular rate of 85 beats per minute. No acute ST segment changes. Labs were drawn. She had a portable chest x-ray which was relatively unremarkable. No significant pulmonary edema, no pleural effusion. Venous gas shows a normal pH, suspect a compensated acidosis with a bicarb of 19, pCO2 of 32 given her tachypnea, though this could also be a compensated respiratory alkalosis. Her white blood cell count is mildly elevated at 13.7. Hemoglobin is stable at 8.4 based on reports of and hemoglobin of 8 on discharge from [facility]. Her INR is elevated at 1.4, she does not appear to be on anticoagulation and I suspect this is related to known liver disease. Metabolic panel showed a sodium of 141, potassium 3.8. Chloride was 117, CO2 was 16. BUN 19 creatinine 0.9. Blood sugar was normal on her metabolic panel at 68, but she did drop to a blood sugar in the 20s later in her ER course. She seemingly does not take her insulin with regularity, but must have taken it today. She did have something to eat and we also gave her an amp of D50. Lactate was elevated at 2.2 total bilirubin was elevated at 1.9, direct was 0.2. AST of 58, ALT of 29. Alk-phos of 226. Troponin was 0.04, CRP was 1. BNP was elevated at 17 70. Lipase was normal. TSH was normal. COVID was negative. I did do a type and screen, but given the stable hemoglobin and negative stool guaiac, I do not think she is actively bleeding. 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 She does not seem immediately to be in significant congestive heart failure. She is not showing signs of significant bronchospasm. I do not hear anything on exam to suggest pneumonia, and I do not see anything on x-ray. She does have a mildly elevated white blood cell count and lactate, raising the possibility of an infection. I did do cultures of blood in urine, but I am holding off on star ting antibiotics at present. Her D-dimer was markedly elevated at 15, raising the possibility of pulmonary embolism. She has worsening abdominal distension and his surgery of severe cirrhosis and portal hypertension. As such, I am going to get a CT scan of her chest to look for pulmonary embolism or other possible pulmonary causes for her shortness of breath and will also get a CT scan of her abdomen to evaluate for possible worsening of her underlying liver disease and ascites. Aside from her hypoglycemia, she was otherwise stable while in the emergency department. She did have O2 sats in the upper 80s here, so we put her on some oxygen. She will go to the floor from the CT scanner. I have discussed her care with Dr. Fuller who has accepted her for admission. Vital Signs Vital signs: Initial Vital Signs Respiratory Effort 07/09/22 14:50 Respiratory Pattern 07/09/22 14:50 Vital Signs Temperature 97.9 F 07/09/22 14:52 Pulse Rate 91 07/09/22 14:52 Respiratory Rate 26 H 07/09/22 14:52 Blood Pressure 188/85 H 07/09/22 14:52 Pulse Oximetry 96 07/09/22 14:52 Oxygen Delivery Method 07/09/22 14:52 Temperature 98.3 F 07/09/22 16:33 Pulse Rate 83 07/09/22 17:43 Respiratory Rate 18 07/09/22 17:43 Blood Pressure 155/62 H 07/09/22 17:43 Pulse Oximetry 92 07/09/22 17:43 Oxygen Delivery Method 07/09/22 17:43 Oxygen Flow Rate 2 07/09/22 17:40 Medical Decision Making Lab Data Labs: Lab Results 07/09/22 07/09/22 07/09/22 Range/Units 15:30 15:35 15:50 WBC 13.67 H (4.50-11.00) K/uL RBC 2.85 L (4.00-5.20) m/uL Hgb 8.4 L (12.0-16.0) gm/dL Hct 26.5 L (33.0-51.0) % MCV 93 (80-100) fL MCH 30 (26-34) pg MCHC 32 (32-36) gm/dL RDW Coeff of Annie 16.4 H (11.5-15.5) % Plt Count 242 (140-440) K/uL Neut % (Auto) 73.4 H (42.0-72.0) % Lymph % (Auto) 13.5 L (20-44) % [place] % (Auto) 9.4 (0.0-11.0) % Eos % (Auto) 2.7 (0.0-7.0) % Baso % (Auto) 0.8 (0.0-3.0) % Neut # (Auto) 10.00 H (1.7-7.0) K/uL Lymph # (Auto) 1.80 (0.90-2.90) K/uL [place] # (Auto) 1.30 H (0.00-0.90) K/UL Eos # (Auto) 0.40 (0.00-0.50) K/uL Baso # (Auto) 0.10 (0.00-0.30) K/uL INR 1.41 H (0.91-1.10) APTT 46 H (23-33) Seconds D-Dimer Quant (PE/DVT) 14.37 H (0.00-0.50) ug/ml VBG pH (7.32-7.43) VBG pCO2 (40-50) mmHG VBG pO2 (25-47) mmHG VBG HCO3 (21-28) mmol/L Sodium (135-149) mmol/L Potassium (3.6-5.1) mmol/L Chloride (96-114) mmol/L Carbon Dioxide (20-32) mmol/L BUN (7-30) mg/dL Creatinine (0.5-1.5) mg/dL Estimated Creat Clear Estimated GFR ml/min Glucose (60-115) mg/dL Lactate (0.5-1.9) mmol/L Calcium (8.4-10.6) mg/dL Total Bilirubin (0.1-1.5) mg/dL Direct Bilirubin (0.0-0.5) mg/dL AST (12-35) U/L ALT (4-35) U/L Alkaline Phosphatase (40-150) U/L Troponin I (0.01-0.04) ng/mL C-Reactive Protein (0.5-1.0) mg/dL NT-Pro-B Natriuret Pep pg/mL Total Protein (6.0-8.3) g/dL Albumin (3.3-5.0) g/dL Lipase (23-300) U/L Procalcitonin (<0.50) ng/mL TSH (0.270-4.200) uIU/mL SARS-CoV-2 (PCR) Negative SARS-CoV-2 (Negative) Blood Type Antibody Screen 07/09/22 07/09/22 07/09/22 Range/Units 15:50 15:50 15:50 WBC (4.50-11.00) K/uL RBC (4.00-5.20) m/uL Hgb (12.0-16.0) gm/dL Hct (33.0-51.0) % MCV (80-100) fL MCH (26-34) pg MCHC (32-36) gm/dL RDW Coeff of Annie (11.5-15.5) % Plt Count (140-440) K/uL Neut % (Auto) (42.0-72.0) % Lymph % (Auto) (20-44) % [place] % (Auto) (0.0-11.0) % Eos % (Auto) (0.0-7.0) % Baso % (Auto) (0.0-3.0) % Neut # (Auto) (1.7-7.0) K/uL Lymph # (Auto) (0.90-2.90) K/uL [place] # (Auto) (0.00-0.90) K/UL Eos # (Auto) (0.00-0.50) K/uL Baso # (Auto) (0.00-0.30) K/uL INR Cancelled (0.91-1.10) APTT Cancelled (23-33) Seconds D-Dimer Quant (PE/DVT) (0.00-0.50) ug/ml VBG pH (7.32-7.43) VBG pCO2 (40-50) mmHG VBG pO2 (25-47) mmHG VBG HCO3 (21-28) mmol/L Sodium 141 (135-149) mmol/L Potassium 3.8 (3.6-5.1) mmol/L Chloride 117 H (96-114) mmol/L Carbon Dioxide 16 L (20-32) mmol/L BUN 19 (7-30) mg/dL Creatinine 0.9 (0.5-1.5) mg/dL Estimated Creat Clear 47.27 Estimated GFR 67 ml/min Glucose 68 (60-115) mg/dL Lactate (0.5-1.9) mmol/L Calcium 8.2 L (8.4-10.6) mg/dL Total Bilirubin 1.9 H Cancelled (0.1-1.5) mg/dL Direct Bilirubin 0.2 Cancelled (0.0-0.5) mg/dL AST 58 H Cancelled (12-35) U/L ALT 29 Cancelled (4-35) U/L Alkaline Phosphatase 226 H Cancelled (40-150) U/L Troponin I 0.04 Cancelled (0.01-0.04) ng/mL C-Reactive Protein 1.0 (0.5-1.0) mg/dL NT-Pro-B Natriuret Pep 1770 Cancelled pg/mL Total Protein 7.7 Cancelled (6.0-8.3) g/dL Albumin 3.4 Cancelled (3.3-5.0) g/dL Lipase (23-300) U/L Procalcitonin (<0.50) ng/mL TSH (0.270-4.200) uIU/mL SARS-CoV-2 (PCR) (Negative) Blood Type Antibody Screen 07/09/22 07/09/22 07/09/22 Range/Units 15:50 15:50 15:50 WBC (4.50-11.00) K/uL RBC (4.00-5.20) m/uL Hgb (12.0-16.0) gm/dL Hct (33.0-51.0) % MCV (80-100) fL MCH (26-34) pg MCHC (32-36) gm/dL RDW Coeff of Annie (11.5-15.5) % Plt Count (140-440) K/uL Neut % (Auto) (42.0-72.0) % Lymph % (Auto) (20-44) % [place] % (Auto) (0.0-11.0) % Eos % (Auto) (0.0-7.0) % Baso % (Auto) (0.0-3.0) % Neut # (Auto) (1.7-7.0) K/uL Lymph # (Auto) (0.90-2.90) K/uL [place] # (Auto) (0.00-0.90) K/UL Eos # (Auto) (0.00-0.50) K/uL Baso # (Auto) (0.00-0.30) K/uL INR (0.91-1.10) APTT (23-33) Seconds D-Dimer Quant (PE/DVT) (0.00-0.50) ug/ml VBG pH 7.381 (7.32-7.43) VBG pCO2 32 L (40-50) mmHG VBG pO2 68.9 H (25-47) mmHG VBG HCO3 19 L (21-28) mmol/L Sodium (135-149) mmol/L Potassium (3.6-5.1) mmol/L Chloride (96-114) mmol/L Carbon Dioxide (20-32) mmol/L BUN (7-30) mg/dL Creatinine (0.5-1.5) mg/dL Estimated Creat Clear Estimated GFR ml/min Glucose (60-115) mg/dL Lactate 2.2 H (0.5-1.9) mmol/L Calcium (8.4-10.6) mg/dL Total Bilirubin (0.1-1.5) mg/dL Direct Bilirubin (0.0-0.5) mg/dL AST (12-35) U/L ALT (4-35) U/L Alkaline Phosphatase (40-150) U/L Troponin I (0.01-0.04) ng/mL C-Reactive Protein (0.5-1.0) mg/dL NT-Pro-B Natriuret Pep pg/mL Total Protein (6.0-8.3) g/dL Albumin (3.3-5.0) g/dL Lipase (23-300) U/L Procalcitonin (<0.50) ng/mL TSH 3.580 (0.270-4.200) uIU/mL SARS-CoV-2 (PCR) (Negative) Blood Type O Positive Antibody Screen NEGATIVE 07/09/22 Range/Units 15:50 WBC (4.50-11.00) K/uL RBC (4.00-5.20) m/uL Hgb (12.0-16.0) gm/dL Hct (33.0-51.0) % MCV (80-100) fL MCH (26-34) pg MCHC (32-36) gm/dL RDW Coeff of Annie (11.5-15.5) % Plt Count (140-440) K/uL Neut % (Auto) (42.0-72.0) % Lymph % (Auto) (20-44) % [place] % (Auto) (0.0-11.0) % Eos % (Auto) (0.0-7.0) % Baso % (Auto) (0.0-3.0) % Neut # (Auto) (1.7-7.0) K/uL Lymph # (Auto) (0.90-2.90) K/uL [place] # (Auto) (0.00-0.90) K/UL Eos # (Auto) (0.00-0.50) K/uL Baso # (Auto) (0.00-0.30) K/uL INR (0.91-1.10) APTT (23-33) Seconds D-Dimer Quant (PE/DVT) (0.00-0.50) ug/ml VBG pH (7.32-7.43) VBG pCO2 (40-50) mmHG VBG pO2 (25-47) mmHG VBG HCO3 (21-28) mmol/L Sodium (135-149) mmol/L Potassium (3.6-5.1) mmol/L Chloride (96-114) mmol/L Carbon Dioxide (20-32) mmol/L BUN (7-30) mg/dL Creatinine (0.5-1.5) mg/dL Estimated Creat Clear Estimated GFR ml/min Glucose (60-115) mg/dL Lactate (0.5-1.9) mmol/L Calcium (8.4-10.6) mg/dL Total Bilirubin (0.1-1.5) mg/dL Direct Bilirubin (0.0-0.5) mg/dL AST (12-35) U/L ALT (4-35) U/L Alkaline Phosphatase (40-150) U/L Troponin I (0.01-0.04) ng/mL C-Reactive Protein (0.5-1.0) mg/dL NT-Pro-B Natriuret Pep pg/mL Total Protein (6.0-8.3) g/dL Albumin (3.3-5.0) g/dL Lipase 58 (23-300) U/L Procalcitonin 0.09 (<0.50) ng/mL TSH (0.270-4.200) uIU/mL SARS-CoV-2 (PCR) (Negative) Blood Type Antibody Screen
[2022-07-09 16:20] LABS: SARS PCR* Negative SARS-CoV-2 (Negative)
[2022-07-09 16:26] LABS: Albumin* 3.4 g/dL (3.3-5.0); Chloride* 117 mmol/L (96-114); Sodium* 141 mmol/L (135-149)
[2022-07-09 16:27] LABS: Potassium* 3.8 mmol/L (3.6-5.1)
[2022-07-09 16:29] LABS: Bilirubin Direct* 0.2 mg/dL (0.0-0.5); Bilirubin Total* 1.9 mg/dL (0.1-1.5); Carbon Dioxide* 16 mmol/L (20-32); Creatinine* 0.9 mg/dL (0.5-1.5); Est. Creatinine Clearance* 47.27; Estimated Glomerular Filt Rate 67 ml/min; INR 1.41 (0.91-1.10); Total Protein* 7.7 g/dL (6.0-8.3)
[2022-07-09 16:30] LABS: Alanine Aminotransferase* 29 U/L (4-35); Alkaline Phosphatase* 226 U/L (40-150); Aspartate Amino Transferase* 58 U/L (12-35); Blood Urea Nitrogen* 19 mg/dL (7-30); Calcium* 8.2 mg/dL (8.4-10.6); Glucose* 68 mg/dL (60-115); Partial Thromboplastin Time* 46 Seconds (23-33)
--- NOTE | 2022-07-09 16:31 | ED.NURSE ---
Pt asked to go to [facility], did not have to go. Pt asking for food and drink, will wait except for small sips of water per Dr. Beard. Pt broke out in sweat however is afebrile. Dr. Beard updated on Pt status and VS. Will draw , heads up to house sup for admit.
[2022-07-09 16:37] LABS: D Dimer Quantitative* 14.37 ug/ml (0.00-0.50)
[2022-07-09 16:42] LABS: Troponin I* 0.04 ng/mL (0.01-0.04)
[2022-07-09 16:43] LABS: NT Pro B Type NatriureticPept* 1770 pg/mL
--- NOTE | 2022-07-09 16:52 | CRLHL7_ITS ---
For Patients: As a result of the Century Cures Act, medical imaging exams and procedure reports are released immediately into your electronic medical record. You may view this report before your referring provider. If you have questions, please contact your health care provider. INDICATION: Abdominal distension. [place]. Portal hypertension. Elevated D-dimer. Dyspnea. COMPARISON: A CT of the abdomen and pelvis dated May 11, 2022 and more remotely, March 09, 2021 TECHNIQUE: CT examination of the chest, abdomen and pelvis was performed following the uneventful intravenous administration of 95 cc of Isovue 370. Thin section axial images were obtained from the thoracic inlet through the pubic symphysis. Oral contrast was not administered. Sagittal coronal reformatted imaging was performed. The chest portion of the study was performed as a angiogram Please note that all CT scans at this facility use dose modulation, iterative reconstruction, and/or weight-based dosing when appropriate to reduce radiation dose to as low as reasonably achievable. FINDINGS: CHEST: The heart is enlarged. This is multi chamber including the right heart. There is no pericardial effusion. There is no mediastinal or hilar mass. Few prominent lymph nodes are noted which are likely reactive. Lung evaluation is somewhat limited by motion artifact. No focal consolidation, infiltrate or mass. Basilar opacities are probably all related atelectasis. No pleural effusion or pneumothorax. PULMONARY ARTERY DISTRIBUTION: No indication of acute pulmonary embolus. Peripheral vessels especially at the bases are poorly evaluated due to respiratory motion artifact. ABDOMEN AND PELVIS: LIVER/BILIARY SYSTEM:The liver is enlarged with morphologic evidence of cirrhosis. There is no focal mass. The gallbladder is absent. There is mild extrahepatic biliary ductal dilatation similar to the prior study ADRENALS: Normal KIDNEYS, URETERS and BLADDER:Normal left kidney. Right renal cyst. No hydronephrosis or hydroureter. The bladder appears normal SPLEEN:The spleen is surgically absent PANCREAS: The pancreas appears normal though there is probably been a distal pancreatectomy. RETROPERITONEUM and MESENTERY: Atherosclerotic vascular calcifications. GASTROINTESTINAL SYSTEM: There are varices at the esophagogastric junction which were present previously indicating portal hypertension. There is diffuse wall thickening of the entirety of the GI system. This is the stomach, small bowel and colon. This is probably due to portal hypertension and/or hypoproteinemia and possibly right heart failure. This represents a significant change since the prior study. Ascites has also worsened as has body wall edema. Incidental large duodenal diverticulum. PELVIS: No mass or adenopathy. Ascites noted. OSSEOUS STRUCTURES and ABDOMINAL WALL: No acute osseous findings. Body wall edema. OTHER: No free air IMPRESSION: 1. CHEST: There is no evidence of pulmonary embolus. Basilar atelectasis. No pleural effusion or pneumothorax. A few prominent lymph nodes are likely reactive hypertension specifically varices and ascites. The ascites has markedly worsened and body wall edema is new. There is also severe diffuse edema of the stomach, small bowel and colon which is probably due to portal hypertension, hypoproteinemia and right heart failure. All these findings can be due to progressive hepatic decompensation. The ascites, bowel wall edema and body wall edema have markedly worsened since April. Please note that all CT scans at this facility use dose modulation, iterative reconstruction, and/or weight-based dosing when appropriate to reduce radiation dose to as low as reasonably achievable. Dictated by Jeremias Landaverde MD @ 07/09/2022 7:27:54 PM (Electronically Signed)
[2022-07-09 17:11] LABS: Lipase* 58 U/L (23-300)
[2022-07-09] MEDS: DEXTROSE 50 % SYRINGE IVP (17:15)
--- NOTE | 2022-07-09 17:25 | ED.NURSE ---
Pt second episode of hot flash and sweating, afebrile, bedside blood glucose 22. Pt able to tolerate food and drink ok per block, amp d50 admin ivp, pt drinking oj and milk and is eating crackers and pears. Pt son at .
[2022-07-09 17:29] LABS: Procalcitonin* 0.09 ng/mL (<0.50)
--- NOTE | 2022-07-09 18:09 | P.IMHP_ITS ---
Hospitalist- H&P: HPI History of Present Illness Date Seen: 07/09/22 Chief complaint: Shortness of breath, diarrhea Narrative: ADMISSION HISTORY AND PHYSICAL - HOSPITALIST Chief Complaint: trouble breathing, weak HPI: 76-year-old with poorly controlled type 2 diabetes AND with biopsy-proven cirrhosis from non alcoholic fatty liver disease who presents with a 20 lb weight gain, increasing shortness of breath and weakness. Her last visit to [facility] was in May. She was recently hospitalized to [facility] for a duodenal ulcer. She isn't really eating well, she has been a little forgetful but nothing significant. Most of her history is gathered by her son and his hus band (MEDICAL DOCTOR) who are visiting from [place]. They are in her room tonight when I examined her and gathered history. No fevers, chills. Chronic diarrhea is noted. Blood sugars have been erratic. As high as 400 and as low as 22 in the emergency room today. A1c runs in the nines. For her recent admission to [facility], she had a duodenal ulcer clipped but did not receive blood products. She is supposed to be on Protonix 40 mg b.i.d., I do not think that is happening. There is no previous history of ascites with her chronic liver disease THUS she is not on spironolactone. She is on 40 mg of p.o. Lasix. She is on a three med regimen for HTN and insulin and OZEMPIC ([id number]) for DM. She has known varices and worsening portal hypertension. She lives alone. , retired. Three adult children. In the ED- -Lab abnormalities included a new leukocytosis, chronic anemia, markedly elevated D-dimer, elevated INR, AST, alk-phos and total bilirubin. The LFT elevations are not new. Ammonia level is normal. -in the ED she received a dextrose and fusion secondary to hypoglycemia -given the elevated D-dimer, I just instructed the ED to murri[place] CT her and send her to the floor. I've updated the PFSH, medications and allergies in the [place] tabs. INVESTIGATIONS: LABS/MICRO/ECG/IMAGING Afebrile since arrival Elevated blood pressure 188/85 Mildly tachypneic 26 but on room air 96% Pulse 91 Weight change, approximately 21 lb over the last few weeks. CBC is relevant for a leukocytosis of 13.6, previously 7.4 on June 09 ([facility]) Known anemia 8.4, previously 8.0 on June 09 Normal platelets INR 1.41 not on anticoagulation (last INR was 1.2 summer 2021) D-dimer 14.4 PH is 7.4 however evidence of mixed acid-base disorder Normal renal function. Hyperchloremic, mildly acidotic with a CO2 of 16. Lactate mildly elevated at 2.2 Elevated bilirubin 1.9 (this is not new; [facility] shows similar LFTs in summer 2021) Mild bump in the AST, 58 (not new) Alk-phos 226 (not new) Lipase normal Procalcitonin normal TSH normal A1c 9.5 on June 06 AFP was checked this last summer and was negative Previous hep C and hep B negative CAP CT There is no evidence of pulmonary embolus. Basilar atelectasis. No pleural effusion or pneumothorax. A few prominent lymph nodes are likely reactive. There are varices at the esophagogastric junction which were present previously indicating portal hypertension. There is diffuse wall thickening of the entirety of the GI system. This is the stomach, small bowel and colon. This is probably due to portal hypertension and/or hypoproteinemia and possibly right heart failure. This represents a significant change since the prior study. Ascites has also worsened as has body wall edema. Incidental large duodenal diverticulum. REVIEW OF SYSTEMS: 12-point ROS completed with patient and negative unless otherwise stated in HPI or below. PHYSICAL EXAM: CODE STATUS: FULL CODE CONSTITUTIONAL: SNORING. AWAKES, PLEASANT. DEFERS TO HER SONS FOR HISTORY, FALLS BACK TO SLEEP VITAL SIGNS: see record. HEENT: Normocephalic, atraumatic. PERRL, EOMI, conjunctivae pink, no scleral icterus. Ears and nose externally normal. Pharynx normal. NECK: No JVD. No carotid bruit, no thyromegaly, no adenopathy. CHEST: NO CRACKLES, WHEEZING, DIMINISHED HEART: S1 and S2 normal. No harsh murmurs. Edema 1-2+ ABDOMEN: PROTUBERANT. GOOD BOWEL SOUNDS. NONTENDER. MUSCULOSKELETAL: No gross joint deformity or swelling. NEURO: Cranial nerves intact. Grossly intact. No asymmetric findings. SKIN: No rashes, petechiae, concerning changes PSYCHIATRIC: Euthymic. ADMIT TO MEDSURG: FLOOR CARE DVT: COAGULOPATHY GIVEN LIVER DISEASE. SCDS. GI: PO intake, PPI Time spent: 70 minutes examining patient, conferring with family and patient, care staff, developing care plan [facility] Medical History (Updated 07/09/22 @ 21:29 by Kiara Fuller MD) Abdominal ascites Dupuytren's contracture of both hands (12/25/13) History of colon polyps (03/10/20) History of solitary pulmonary nodule Hyperlipidemia Hypertension Insomnia 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 Major depression, recurrent Mild cognitive impairment Obstructive sleep apnea Osteopenia Portal hypertension Sensorineural hearing loss Tobacco abuse Type 2 diabetes mellitus Surgical History History of arthroscopy of shoulder History of cholecystectomy (1984) History of hysterectomy History of oophorectomy (1997) History of resection of pancreas (1984) History of vaginal hysterectomy (1997) Status post cholecystectomy Family History Other Colon cancer Diabetes Stroke Social History (Updated 07/09/22 @ 21:29 by Kiara Fuller MD) Narrative: , 3 kids, smoker, retired, cognitive impairment not a drinker Highest level of school completed/degree received: Associate degree: occupational, technical, vocational program Smoking Status: Current every day smoker What tobacco products do you use: cigarettes How often do you have a drink containing alcohol: never AUDIT-C Alcohol total score: 0 Non-prescribed substance use: denies use Caffeine: Yes (2 cup/day) Little interest or pleasure in doing things: several days Feeling down, depressed, or hopeless: several days service: No Meds Home Medications and Allergies Home Medications Medication Instructions Recorded Confirmed Type duloxetine 60 mg capsule,delayed 60 mg PO QDAY 01/13/22 07/09/22 History release pen needle, diabetic 31 gauge x #50 ea 01/13/22 07/09/22 History 09/29 (BD Ultra-Fine Mini Pen Needle) atorvastatin 40 mg tablet 20 mg PO QDAY 02/18/22 07/09/22 History blood sugar diagnostic (FreeStyle #10 ea 04/01/22 07/09/22 History Lite Strips) flash glucose scanning reader #1 ea 04/01/22 07/09/22 History (FreeStyle Aileen 2 [place]) flash glucose sensor (FreeStyle #1 ea 04/01/22 07/09/22 History Aileen 2 Sensor kit) insulin degludec 200 unit/mL (3 50 unit subcut .HS 04/01/22 07/09/22 History mL) subcutaneous pen (Tresiba FlexTouch U-200 insulin) amlodipine 2.5 mg tablet 2.5 mg PO QDAY 05/16/22 07/09/22 History loratadine 10 mg tablet 10 mg PO QDAY 05/16/22 07/09/22 History losartan 100 mg tablet 100 mg PO QDAY 05/16/22 07/09/22 History clobetasol 0.05 % scalp solution 1 applic topical BID PRN 05/24/22 07/09/22 History triamcinolone acetonide 0.1 % 1 applic topical BID PRN 05/24/22 07/09/22 History topical cream hydrochlorothiazide 25 mg tablet 25 mg PO DAILY 07/09/22 07/09/22 History mirtazapine 15 mg tablet (Remeron) 15 mg PO DAILY 07/09/22 07/09/22 History Allergies Allergy/AdvReac Type Severity Reaction Status Date / Time Cephalosporins Allergy Mild Unknown Verified 05/24/22 11:55 gadodiamide Allergy Mild Unknown Verified 05/24/22 11:55 Sulfa (Sulfonamide Allergy Mild Unknown Verified 05/24/22 11:55 Antibiotics) cefaclor [From Ceclor] Allergy Unknown Unknown Verified 05/24/22 11:55 Exam Const: Vital Signs, click to edit/add: Vital Signs - 24 hr 07/09/22 14:52 07/09/22 16:33 07/09/22 16:30 Temperature 97.9 F 98.3 F Pulse Rate [Pulse Oximeter] 91 Respiratory Rate 26 H Blood Pressure [Ri ght Upper Arm] 188/85 H Pulse Oximetry 96 86 L Oxygen Delivery Me thod Room Air Room Air Oxygen Flow Rate 1 Hospitalist - H&P: Result Labs Labs: Short CBC 07/09/22 Range/Units 15:30 WBC 13.67 H (4.50-11.00) K/uL Hgb 8.4 L (12.0-16.0) gm/dL Hct 26.5 L (33.0-51.0) % Plt Count 242 (140-440) K/uL BMP 07/09/22 15:50 Sodium 141 Potassium 3.8 Chloride 117 H Carbon Dioxide 16 L BUN 19 Creatinine 0.9 Glucose 68 Calcium 8.2 L Cardiac Enzymes 07/09/22 07/09/22 Range/Units 15:50 15:50 Troponin I 0.04 Cancelled (0.01-0.04) ng/mL Liver Function 07/09/22 07/09/22 Range/Units 15:50 15:50 Total Bilirubin 1.9 H Cancelled (0.1-1.5) mg/dL Direct Bilirubin 0.2 Cancelled (0.0-0.5) mg/dL AST 58 H Cancelled (12-35) U/L ALT 29 Cancelled (4-35) U/L Alkaline Phosphatase 226 H Cancelled (40-150) U/L Albumin 3.4 Cancelled (3.3-5.0) g/dL Assessment and Plan Assessment and plan (1) 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: Problem comment: Decompensated. Needs guideline directed diuretic therapy. salt and fluid restriction. Consider GI consult. Classic manifestations: Fatigue, ascites, increasing INR, imaging findings of varices, gastropathy, portal hypertension, cognitive decline Patient underwent percutaneous liver biopsy on 04/20/2021. Path revealed steatohepatitis, characterized by: Moderate (55%) steatosis, Mild inflammatory activity (EZEKIEL activity score 4 out of 8 based on 2 points for steatosis, 1 point for inflammation and 1 point for ballooning. Fibrosis/Stage: Cirrhosis (stage 4 of 4) Status: Chronic (2) Abdominal ascites: Problem comment: 1 time dose of IV lasix -2/2 tachypnea. placing urinary catheter for accurate output measurement - transition to oral spironolactone/furosemide combination 2 gram sodium restriction/2L free water restriction 100 mg aldactone/40mg lasix PO q am consider therapeutic paracentesis -WITH WBC COUNT, CONSIDER SPB. no fever or significant pain tonight - check tap tomorrow - follow cultures and/or cover with rocephin? Telephone consult versus transfer to Gastroenterology Service Status: Acute (3) Portal hypertension: Problem comment: albumin infusion tonight; likely limited benefit. guideline directed therapy; GI consult needed Status: Acute (4) Type 2 diabetes mellitus: Problem comment: SSI/AccuChecks Tresiba and NovoLog - dosing is not clear on [id number] - OZEMPIC (pt family needs to bring in) needs SGLT2 initiation Status: Chronic (5) Mild cognitive impairment: Problem comment: Checking ammonia level Repeat [place] Discharge planning needs to include at least assisted living and or home health Status: Chronic (6) Hypertension: Problem comment: amlodipine 2.5 mg daily, hydrochlorothiazide 25 mg daily, losartan 100 mg daily, Toprol-XL 10 mg daily - ALL ON HOLD aldactone/lasix combination starting 07/10/22 Status: Chronic (7) Tobacco abuse: Status: Acute (8) Obstructive sleep apnea: Status: Chronic (9) Major depression, recurrent: Status: Chronic (10) Insomnia: Problem comment: continue mirtazapine Status: Acute
[2022-07-09] MEDS: FUROSEMIDE 10 MG/ML inj 80 MG IVP (21:29)
[2022-07-09] MEDS: PANTOPRAZOLE SODIUM 40 MG INJ 80 MG IVP (21:30)
[2022-07-09] MEDS: ATORVASTATIN CALCIUM 40 MG TABLET 20 MG PO (21:30)
[2022-07-09] MEDS: ALBUMIN HUMAN 25% 100 ML VIAL IV (21:31)
[2022-07-09 22:02] LABS: Appearance Urine Clear (Clear); Bilirubin Urine Negative (Negative); Blood Urine Trace-intact (Negative); Color Urine Yellow (Yellow); Glucose Urine Negative (Negative); Ketones Urine Negative (Negative); Leukocyte Esterase Urine Negative (Negative); Nitrite Urine Positive (Negative); Protein Urine Negative (Negative); Specific Gravity Urine 1.015 (1.000-1.030); Urobilinogen Urine 0.2 (0.2-1.0); pH Urine 5.5 (5.0-8.5)
[2022-07-09 22:31] LABS: Lab Add On Test New Spec Needed
[2022-07-09 22:42] LABS: Bacteria Urine Moderate; RBC Urine 0-2 (0-2)
[2022-07-09] MEDS: NICOTINE 14 mg PATCH 1 PATCH TRANSDERMA (22:48)
[2022-07-09] MEDS: OMEPRAZOLE 20 MG CAPSULE DR 40 MG PO (22:48)
[2022-07-09] MEDS: MELATONIN 3 MG TABLET PO (22:49)
[2022-07-10] VITALS (7 sets, daily range): BP systolic 122–184; BP diastolic 54–74; PULSE 80–96; RESP 14–20; TEMP 36.6–37.7; O2SAT 91–96
--- NOTE | 2022-07-10 00:07 | PC.NURSE ---
End of Shift: Patient pleasant and cooperative. Afebrile. Denies pain. Up to bathroom with SBA. Blood glucose 94 and 101, updated MD. Tolerating regular diet with no nausea. BM x1, Hemoccult negative. Blas patent. Able to wean patient off O2 and sats greater than 90% on room air.
--- NOTE | 2022-07-10 06:42 | PC.NURSE ---
Shift note: Pt denies pain during this shift, BPs slightly elevated, afebrile. Blas cath intact and draining pale urine.
[2022-07-10] MEDS: OMEPRAZOLE 20 MG CAPSULE DR 40 MG PO ×2 (08:06→21:11)
[2022-07-10 08:22] LABS: HCO3 VBG 22 mmol/L (21-28); Ionized Calcium* 1.06 mmol/L (1.11-1.30); Lactate* 0.7 mmol/L (0.5-1.9); PCO2 VBG 30 mmHG (40-50); PO2 VBG 53.7 mmHG (25-47); pH VBG 7.476 (7.32-7.43)
[2022-07-10 08:28] LABS: Hematocrit 24.4 % (33.0-51.0); Mean Corpuscular HGB Conc 32 gm/dL (32-36); Mean Corpuscular Hemoglobin 30 pg (26-34); Mean Corpuscular Volume 92 fL (80-100); Platelet Count* 229 K/uL (140-440); Red Blood Count 2.66 m/uL (4.00-5.20); White Blood Count* 10.78 K/uL (4.50-11.00)
[2022-07-10 08:37] LABS: Albumin* 3.4 g/dL (3.3-5.0)
[2022-07-10 08:38] LABS: Chloride* 115 mmol/L (96-114); Potassium* 3.4 mmol/L (3.6-5.1); Sodium* 141 mmol/L (135-149)
[2022-07-10 08:40] LABS: Alkaline Phosphatase* 215 U/L (40-150); Aspartate Amino Transferase* 59 U/L (12-35); Bilirubin Total* 1.7 mg/dL (0.1-1.5); Blood Urea Nitrogen* 20 mg/dL (7-30); Carbon Dioxide* 20 mmol/L (20-32); Cholesterol* 75 mg/dL (90-199); Creatinine* 0.9 mg/dL (0.5-1.5); Est. Creatinine Clearance* 47.27; Estimated Glomerular Filt Rate 67 ml/min; Glucose* 76 mg/dL (60-115); Total Protein* 7.3 g/dL (6.0-8.3)
[2022-07-10 08:41] LABS: Alanine Aminotransferase* 28 U/L (4-35); Calcium* 8.1 mg/dL (8.4-10.6); HDL Cholesterol* 32 mg/dL (>=50); LDL Cholesterol Calculated 29 mg/dL (<100); Magnesium* 1.7 mg/dL (1.5-2.6); Triglycerides* 68 mg/dL (40-149); Uric Acid* 8.8 mg/dL (2.2-8.4)
[2022-07-10 08:42] LABS: Hemoglobin A1C* 8.48 % (0-5.6)
[2022-07-10 08:46] LABS: Hemoglobin* 7.9 gm/dL (12.0-16.0); Slide Review Reflex No
[2022-07-10 08:52] LABS: Troponin I* 0.04 ng/mL (0.01-0.04)
[2022-07-10 09:28] LABS: Iron* 32 ug/dL (37-170)
[2022-07-10 09:37] LABS: Percent Iron Saturation 8 % (20-50); Total Iron Binding Capacity 376 ug/dL (265-497)
[2022-07-10] MEDS: DULOXETINE 30 MG CAPSULE DR 60 MG PO (10:05)
[2022-07-10] MEDS: ATORVASTATIN CALCIUM 40 MG TABLET 20 MG PO (10:06)
[2022-07-10] MEDS: FUROSEMIDE 40 MG TABLET PO (10:07)
[2022-07-10] MEDS: SPIRONOLACTONE 100 MG TABLET PO (10:07)
[2022-07-10] MEDS: MIRTAZAPINE 15 MG TABLET PO (10:08)
[2022-07-10] MEDS: NICOTINE 14 mg PATCH 1 PATCH TRANSDERMA (10:08)
[2022-07-10] MEDS: POTASSIUM BICARB 25 MEQ EFFERVESCENT TAB PO (11:24)
--- NOTE | 2022-07-10 14:53 | PC.NURSE ---
End of Shift: Patient pleasant and cooperative. Patient vitally stable, lung with crackles, BS WNL, IV SL. Patient 1 assist, walker, gb. Patient denied pain. Patient wilde, intact and draining, patient has had 2 mod loose BMs. Nicotine patch on right shoulder. Patient tolerating regular diet. Blood sugars 80 and 213. Tele=NSR.
--- NOTE | 2022-07-10 14:54 | P.IMPN_ITS ---
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 Needs guideline directed diuretic therapy. salt and fluid restriction. Consider GI consult. Classic manifestations: Fatigue, ascites, increasing INR, imaging findings of varices, gastropathy, portal hypertension, cognitive decline? Hepatic encephalopathy possible despite normal ammonia MELD 13 (normal sodium, creatine, elevated INR and TB) Patient underwent percutaneous liver biopsy on 04/20/2021. Path revealed steatohepatitis, characterized by: Moderate (55%) steatosis, Mild inflammatory activity (EZEKIEL activity score 4 out of 8 based on 2 points for steatosis, 1 point for inflammation and 1 point for ballooning. Fibrosis/Stage: Cirrhosis (stage 4 of 4) Status: Chronic (2) Abdominal ascites: Problem details: 1 time dose of IV lasix -2/2 tachypnea. placing urinary catheter for accurate output measurement - transition to oral spironolactone/furosemide combination 2 gram sodium restriction/2L free water restriction 100 mg aldactone/40mg lasix PO q am Surgery recommends against paracentesis. If clinically ill start empiric therapy with ceftriaxone for 5 days Status: Acute (3) H/O: GI bleed: Problem details: Duodenal ulcer; clipped. [facility]. May 2022. No blood products. IV octreotide, ppi. As an aside, Has known varices but good collaterals and has never blood from them. Status: Acute (4) Mild cognitive impairment: Problem details: Ammonia level normal tonight. As high as 45 in the summer of 2021. Poor candidate for lactulose as patient has chronic diarrhea Repeat [place] Discharge planning needs to include at least assisted living and or home health Status: Chronic (5) Type 2 diabetes mellitus: Problem details: Poor glucose control as an outpatient with both hyper and hypoglycemia episodes. With cognitive impairment uncertain how well the patient can manage her diabetes SSI/AccuChecks Tresiba and NovoLog - dosing is not clear on [id number] - OZEMPIC (pt family needs to bring in) needs SGLT2 initiation Status: Chronic (6) Hypertension: Problem details: amlodipine 2.5 mg daily, hydrochlorothiazide 25 mg daily, losartan 100 mg daily, Toprol-XL 10 mg daily - ALL ON HOLD aldactone/lasix combination starting 07/10/22 Status: Chronic (7) Portal hypertension: Problem details: albumin infusion last night. guideline directed therapy; GI consult needed Status: Acute (8) Acute blood loss anemia (ABLA): Problem details: From May 2022 GI bleed. Stable tonight, 07/09/2022. At risk for clinically significant GI bleeding from known gastropathy and varices. Current hemoglobin 7.9. Stool guaiacs negative x3 since admission. Monitor for evidence of bleeding. High risk for bleeding from esophageal varices. Status: Acute Plan Patient is admitted to the hospital for medical management of ascites, cirrhosis, complications including possible bacterial peritonitis, blood-loss anemia, hepatic encephalopathy. Patient is clinically improved overnight so will continue to monitor and manage with appropriate therapy for end-stage liver disease. Also continue to assess patient's ability to manage what is fairly challenging medical problems including diabetes mellitus and end-stage liver disease. Time Spent With Patient Total time spent: Total time spent today is 50 minutes, 30 minutes in coordination care discussing with patient and family ongoing evaluation management of cirrhosis. Subjective Date Seen: 07/10/22 Interval history: 76-year-old female with cirrhosis due to SHIPMAN admitted to the hospital for increase abdominal swelling, dyspnea, somnolence. Initial evaluation showed that she does have on CT scan edema of the bowel wall as well as ascites. This has progressed over the last 2 months since her last CT scan. Surgery did not feel that there was a large of pocket of ascites fluid to performs paracentesis. Patient is had a diagnosis of cirrhosis for at least a couple years. A year ago she was seen by [place] [facility] and had workup of her cirrhosis with the ultimate diagnosis of cirrhosis due to SHIPMAN. She has not had any known complications until the last couple months when she has developed ascites, esophageal varices, possible hepatic encephalopathy with her current somnolence. She was hospitalized at [facility] 1 month ago with bleeding from a duodenal ulcer. Esophageal varices were noted at the time but not bleeding. She lives independently. Today she is here with her son and [id number] who live in [place] and her son who lives in [place]. Exam Narrative: Exam Narrative: She is alert and appears in no distress. She is oriented to her circumstances. Speech is normal except for slight slurring of her words. Eyes are normal. No scleral icterus. Oropharynx is normal. Neck is supple out mass or adenopathy. Respirations are clear to auscultation without wheezing rales or rhonchi. Cardiovascular: S1, S2, regular rate and rhythm. No murmur gallop or rub. Abdomen is protuberant. Palpation shows mild diffuse tenderness in her abdomen. I do not palpate a mass. Her ascites is moderately tense. Extremities with trace edema in her extremities. No asterixis. Const: Vital Signs, click to edit/add: Vital Signs - 24 hr 07/09/22 16:33 07/09/22 16:30 07/09/22 16:20 Temperature 98.3 F Pulse Rate Pulse Rate [Left A pical] Pulse Rate [Pulse Oximeter] 98 Pulse Rate [orthos tatic lying Pulse Oximeter] Pulse Rate [orthos tatic sitting Puls e Oximeter] Pulse Rate [orthos tatic standing Pul se Oximeter] Respiratory Rate 20 Blood Pressure [Le ft Arm] Blood Pressure [Ri ght Arm] Blood Pressure [Ri ght Upper Arm] 194/86 H Blood Pressure [or thostatic lying Ri ght Arm] Blood Pressure [or thostatic sitting Right Arm] Blood Pressure [or thostatic standing Right Arm] Pulse Oximetry 86 L 91 Oxygen Delivery Me thod Room Air Room Air Oxygen Flow Rate 1 07/09/22 17:40 07/09/22 17:07 07/09/22 17:43 Temperature Pulse Rate Pulse Rate [Left A pical] Pulse Rate [Pulse Oximeter] 94 83 Pulse Rate [orthos tatic lying Pulse Oximeter] Pulse Rate [orthos tatic sitting Puls e Oximeter] Pulse Rate [orthos tatic standing Pul se Oximeter] Respiratory Rate 20 18 Blood Pressure [Le ft Arm] Blood Pressure [Ri ght Arm] Blood Pressure [Ri ght Upper Arm] 122/96 H 155/62 H Blood Pressure [or thostatic lying Ri ght Arm] Blood Pressure [or thostatic sitting Right Arm] Blood Pressure [or thostatic standing Right Arm] Pulse Oximetry 92 89 92 Oxygen Delivery Me thod Nasal Cannula Nasal Cannula Oxygen Flow Rate 2 07/09/22 18:25 07/09/22 19:00 07/09/22 18:25 Temperature 97.8 F Pulse Rate 80 Pulse Rate [Left A pical] 86 Pulse Rate [Pulse Oximeter] Pulse Rate [orthos tatic lying Pulse Oximeter] Pulse Rate [orthos tatic sitting Puls e Oximeter] Pulse Rate [orthos tatic standing Pul se Oximeter] Respiratory Rate 20 Blood Pressure [Le ft Arm] Blood Pressure [Ri ght Arm] 146/70 H Blood Pressure [Ri ght Upper Arm] Blood Pressure [or thostatic lying Ri ght Arm] Blood Pressure [or thostatic sitting Right Arm] Blood Pressure [or thostatic standing Right Arm] Pulse Oximetry 95 94 Oxygen Delivery Me thod Nasal Cannula Room Air Oxygen Flow Rate 1 07/09/22 23:00 07/09/22 23:00 07/09/22 23:00 Temperature 98.2 F Pulse Rate Pulse Rate [Left A pical] 79 Pulse Rate [Pulse Oximeter] Pulse Rate [orthos tatic lying Pulse Oximeter] Pulse Rate [orthos tatic sitting Puls e Oximeter] Pulse Rate [orthos tatic standing Pul se Oximeter] Respiratory Rate 20 20 Blood Pressure [Le ft Arm] Blood Pressure [Ri ght Arm] 158/77 H Blood Pressure [Ri ght Upper Arm] Blood Pressure [or thostatic lying Ri ght Arm] Blood Pressure [or thostatic sitting Right Arm] Blood Pressure [or thostatic standing Right Arm] Pulse Oximetry 92 92 92 Oxygen Delivery Me thod Room Air Room Air Oxygen Flow Rate 07/10/22 03:00 07/10/22 06:37 07/10/22 07:00 Temperature 98 F Pulse Rate Pulse Rate [Left A pical] 90 Pulse Rate [Pulse Oximeter] Pulse Rate [orthos tatic lying Pulse Oximeter] 93 Pulse Rate [orthos tatic sitting Puls e Oximeter] 92 Pulse Rate [orthos tatic standing Pul se Oximeter] 91 Respiratory Rate 20 Blood Pressure [Le ft Arm] Blood Pressure [Ri ght Arm] 176/74 H Blood Pressure [Ri ght Upper Arm] Blood Pressure [or thostatic lying Ri ght Arm] 184/70 H Blood Pressure [or thostatic sitting Right Arm] 169/68 H Blood Pressure [or thostatic standing Right Arm] 180/64 H Pulse Oximetry 93 95 Oxygen Delivery Me thod Room Air Oxygen Flow Rate 07/10/22 07:00 07/10/22 07:00 07/10/22 07:00 Temperature 99.5 F Pulse Rate Pulse Rate [Left A pical] 90 86 Pulse Rate [Pulse Oximeter] Pulse Rate [orthos tatic lying Pulse Oximeter] Pulse Rate [orthos tatic sitting Puls e Oximeter] Pulse Rate [orthos tatic standing Pul se Oximeter] Respiratory Rate 14 14 14 Blood Pressure [Le ft Arm] Blood Pressure [Ri ght Arm] 159/70 H Blood Pressure [Ri ght Upper Arm] Blood Pressure [or thostatic lying Ri ght Arm] Blood Pressure [or thostatic sitting Right Arm] Blood Pressure [or thostatic standing Right Arm] Pulse Oximetry 95 95 Oxygen Delivery Me thod Room Air Room Air Oxygen Flow Rate 07/10/22 07:00 07/10/22 11:00 Temperature 99.8 F H Pulse Rate 80 Pulse Rate [Left A pical] 96 Pulse Rate [Pulse Oximeter] Pulse Rate [orthos tatic lying Pulse Oximeter] Pulse Rate [orthos tatic sitting Puls e Oximeter] Pulse Rate [orthos tatic standing Pul se Oximeter] Respiratory Rate 14 Blood Pressure [Le ft Arm] 182/74 H Blood Pressure [Ri ght Arm] Blood Pressure [Ri ght Upper Arm] Blood Pressure [or thostatic lying Ri ght Arm] Blood Pressure [or thostatic sitting Right Arm] Blood Pressure [or thostatic standing Right Arm] Pulse Oximetry 96 Oxygen Delivery Me thod Room Air Oxygen Flow Rate Documenting provider has reviewed patient's vital signs: yes Labs Labs: Laboratory Results - last 24 hr 07/09/22 07/09/22 07/09/22 15:30 15:35 15:50 WBC 13.67 H RBC 2.85 L Hgb 8.4 L Hct 26.5 L MCV 93 MCH 30 MCHC 32 RDW Coeff of Annie 16.4 H Plt Count 242 Neut % (Auto) 73.4 H Lymph % (Auto) 13.5 L [place] % (Auto) 9.4 Eos % (Auto) 2.7 Baso % (Auto) 0.8 Neut # (Auto) 10.00 H Lymph # (Auto) 1.80 [place] # (Auto) 1.30 H Eos # (Auto) 0.40 Baso # (Auto) 0.10 INR 1.41 H APTT 46 H D-Dimer Quant (PE/DVT) 14.37 H VBG pH VBG pCO2 VBG pO2 VBG HCO3 Sodium Potassium Chloride Carbon Dioxide BUN Creatinine Estimated Creat Clear Estimated GFR Glucose Hemoglobin A1c Lactate Uric Acid Calcium Ionized Calcium Ashly Magnesium Iron TIBC % Saturation Total Bilirubin Direct Bilirubin AST ALT Alkaline Phosphatase Ammonia Troponin I C-Reactive Protein NT-Pro-B Natriuret Pep Total Protein Albumin Triglycerides Cholesterol LDL Cholesterol, Calc HDL Cholesterol Lipase Procalcitonin TSH Urine Color Urine Appearance Urine pH Ur Specific [place] Urine Protein Urine Glucose (UA) Urine Ketones Urine Blood Urine Nitrite Urine Bilirubin Urine Urobilinogen Ur Leukocyte Esterase Urine RBC Urine WBC Ur Squamous Epith Cells Urine Bacteria SARS-CoV-2 (PCR) Negative SARS-CoV-2 Blood Type Antibody Screen 07/09/22 07/09/22 07/09/22 15:50 15:50 15:50 WBC RBC Hgb Hct MCV MCH MCHC RDW Coeff of Annie Plt Count Neut % (Auto) Lymph % (Auto) [place] % (Auto) Eos % (Auto) Baso % (Auto) Neut # (Auto) Lymph # (Auto) [place] # (Auto) Eos # (Auto) Baso # (Auto) INR Cancelled APTT Cancelled D-Dimer Quant (PE/DVT) VBG pH VBG pCO2 VBG pO2 VBG HCO3 Sodium 141 Potassium 3.8 Chloride 117 H Carbon Dioxide 16 L BUN 19 Creatinine 0.9 Estimated Creat Clear 47.27 Estimated GFR 67 Glucose 68 Hemoglobin A1c Lactate Uric Acid Calcium 8.2 L Ionized Calcium Ashly Magnesium Iron TIBC % Saturation Total Bilirubin 1.9 H Cancelled Direct Bilirubin 0.2 Cancelled AST 58 H Cancelled ALT 29 Cancelled Alkaline Phosphatase 226 H Cancelled Ammonia Troponin I 0.04 Cancelled C-Reactive Protein 1.0 NT-Pro-B Natriuret Pep 1770 Cancelled Total Protein 7.7 Cancelled Albumin 3.4 Cancelled Triglycerides Cholesterol LDL Cholesterol, Calc HDL Cholesterol Lipase Procalcitonin TSH Urine Color Urine Appearance Urine pH Ur Specific [place] Urine Protein Urine Glucose (UA) Urine Ketones Urine Blood Urine Nitrite Urine Bilirubin Urine Urobilinogen Ur Leukocyte Esterase Urine RBC Urine WBC Ur Squamous Epith Cells Urine Bacteria SARS-CoV-2 (PCR) Blood Type Antibody Screen 07/09/22 07/09/22 07/09/22 15:50 15:50 15:50 WBC RBC Hgb Hct MCV MCH MCHC RDW Coeff of Annie Plt Count Neut % (Auto) Lymph % (Auto) [place] % (Auto) Eos % (Auto) Baso % (Auto) Neut # (Auto) Lymph # (Auto) [place] # (Auto) Eos # (Auto) Baso # (Auto) INR APTT D-Dimer Quant (PE/DVT) VBG pH 7.381 VBG pCO2 32 L VBG pO2 68.9 H VBG HCO3 19 L Sodium Potassium Chloride Carbon Dioxide BUN Creatinine Estimated Creat Clear Estimated GFR Glucose Hemoglobin A1c Lactate 2.2 H Uric Acid Calcium Ionized Calcium Ashly Magnesium Iron TIBC % Saturation Total Bilirubin Direct Bilirubin AST ALT Alkaline Phosphatase Ammonia Troponin I C-Reactive Protein NT-Pro-B Natriuret Pep Total Protein Albumin Triglycerides Cholesterol LDL Cholesterol, Calc HDL Cholesterol Lipase Procalcitonin TSH 3.580 Urine Color Urine Appearance Urine pH Ur Specific [place] Urine Protein Urine Glucose (UA) Urine Ketones Urine Blood Urine Nitrite Urine Bilirubin Urine Urobilinogen Ur Leukocyte Esterase Urine RBC Urine WBC Ur Squamous Epith Cells Urine Bacteria SARS-CoV-2 (PCR) Blood Type O Positive Antibody Screen NEGATIVE 07/09/22 07/09/22 07/09/22 15:50 16:51 17:30 WBC RBC Hgb Hct MCV MCH MCHC RDW Coeff of Annie Plt Count Neut % (Auto) Lymph % (Auto) [place] % (Auto) Eos % (Auto) Baso % (Auto) Neut # (Auto) Lymph # (Auto) [place] # (Auto) Eos # (Auto) Baso # (Auto) INR APTT D-Dimer Quant (PE/DVT) VBG pH VBG pCO2 VBG pO2 VBG HCO3 Sodium Potassium Chloride Carbon Dioxide BUN Creatinine Estimated Creat Clear Estimated GFR Glucose Hemoglobin A1c Lactate Uric Acid Calcium Ionized Calcium Ashly Magnesium Iron TIBC % Saturation Total Bilirubin Direct Bilirubin AST ALT Alkaline Phosphatase Ammonia 21.0 Troponin I C-Reactive Protein NT-Pro-B Natriuret Pep Total Protein Albumin Triglycerides Cholesterol LDL Cholesterol, Calc HDL Cholesterol Lipase 58 Procalcitonin 0.09 TSH Urine Color Yellow Urine Appearance Clear Urine pH 5.5 Ur Specific [place] 1.015 Urine Protein Negative Urine Glucose (UA) Negative Urine Ketones Negative Urine Blood Trace-intact A Urine Nitrite Positive A Urine Bilirubin Negative Urine Urobilinogen 0.2 Ur Leukocyte Esterase Negative Urine RBC 0-2 Urine WBC 2-5 Ur Squamous Epith Cells None Urine Bacteria Moderate A SARS-CoV-2 (PCR) Blood Type Antibody Screen 07/10/22 07/10/22 07/10/22 04:00 08:20 08:20 WBC 10.78 RBC 2.66 L Hgb 7.9 L* Hct 24.4 L MCV 92 MCH 30 MCHC 32 RDW Coeff of Annie Plt Count 229 Neut % (Auto) Lymph % (Auto) [place] % (Auto) Eos % (Auto) Baso % (Auto) Neut # (Auto) Lymph # (Auto) [place] # (Auto) Eos # (Auto) Baso # (Auto) INR APTT D-Dimer Quant (PE/DVT) VBG pH VBG pCO2 VBG pO2 VBG HCO3 Sodium 141 Potassium 3.4 L Chloride 115 H Carbon Dioxide 20 BUN 20 Creatinine 0.9 Estimated Creat Clear 47.27 Estimated GFR 67 Glucose 76 Hemoglobin A1c Lactate Uric Acid 8.8 H Calcium 8.1 L Ionized Calcium Ashly Magnesium 1.7 Iron 32 L TIBC 376 % Saturation 8 L Total Bilirubin 1.7 H Direct Bilirubin AST 59 H ALT 28 Alkaline Phosphatase 215 H Ammonia Troponin I 0.04 C-Reactive Protein NT-Pro-B Natriuret Pep Total Protein 7.3 Albumin 3.4 Triglycerides 68 Cholesterol 75 L LDL Cholesterol, Calc 29 HDL Cholesterol 32 L Lipase Procalcitonin TSH Urine Color Urine Appearance Urine pH Ur Specific [place] Urine Protein Urine Glucose (UA) Urine Ketones Urine Blood Urine Nitrite Urine Bilirubin Urine Urobilinogen Ur Leukocyte Esterase Urine RBC Urine WBC Ur Squamous Epith Cells Urine Bacteria SARS-CoV-2 (PCR) Blood Type Antibody Screen 07/10/22 07/10/22 08:20 08:20 WBC RBC Hgb Hct MCV MCH MCHC RDW Coeff of Annie Plt Count Neut % (Auto) Lymph % (Auto) [place] % (Auto) Eos % (Auto) Baso % (Auto) Neut # (Auto) Lymph # (Auto) [place] # (Auto) Eos # (Auto) Baso # (Auto) INR APTT D-Dimer Quant (PE/DVT) VBG pH 7.476 H VBG pCO2 30 L VBG pO2 53.7 H VBG HCO3 22 Sodium Potassium Chloride Carbon Dioxide BUN Creatinine Estimated Creat Clear Estimated GFR Glucose Hemoglobin A1c 8.48 H Lactate 0.7 Uric Acid Calcium Ionized Calcium Ashly 1.06 L Magnesium Iron TIBC % Saturation Total Bilirubin Direct Bilirubin AST ALT Alkaline Phosphatase Ammonia Troponin I C-Reactive Protein NT-Pro-B Natriuret Pep Total Protein Albumin Triglycerides Cholesterol LDL Cholesterol, Calc HDL Cholesterol Lipase Procalcitonin TSH Urine Color Urine Appearance Urine pH Ur Specific [place] Urine Protein Urine Glucose (UA) Urine Ketones Urine Blood Urine Nitrite Urine Bilirubin Urine Urobilinogen Ur Leukocyte Esterase Urine RBC Urine WBC Ur Squamous Epith Cells Urine Bacteria SARS-CoV-2 (PCR) Blood Type Antibody Screen
[2022-07-10] MEDS: OXYCODONE 5 MG TABLET PO ×2 (16:26→21:13)
--- NOTE | 2022-07-10 22:25 | PC.NURSE ---
Patient is up to the BR with SBA. Continues to have diarrhea. pt states that's normal for me. Blas is patent and draining with 700 out this shift. Pt also states that the distension in her stomach feels much better today. Oxycodone given for stomach pain.
[2022-07-11 02:59] VITALS: BP 174/86; PULSE 79; RESP 16; TEMP 36.6; O2SAT 96
--- NOTE | 2022-07-11 04:48 | PC.NURSE ---
Shift note: Pt continue to have watery diarrhea, 3x this shift. Increased activity level as pt was able to walk to the BR with A1. Denied pain, SOB and N/V. Pt on 2L oxygen to maintain O2 level above 90%, Bp has been high, last recorded Bp was 174/86.
[2022-07-11] MEDS: OMEPRAZOLE 20 MG CAPSULE DR 40 MG PO (06:33)
[2022-07-11 07:00] VITALS: BP 167/70; PULSE 81; PULSE 93; RESP 14; TEMP 36.7; O2SAT 94; O2SAT 95; O2SAT 96
[2022-07-11 07:32] LABS: Basophils Absolute Auto 0.07 K/uL (0.00-0.30); Basophils Percent Auto 0.9 % (0.0-3.0); Eosinophils Percent Auto 6.2 % (0.0-7.0); Hemoglobin* 12.3 gm/dL (12.0-16.0); Immature Granulocytes Abs Auto 0.01 K/uL (0.00-0.30); Immature Granulocytes Pct Auto 0.1 %; Lymphocytes Percent Auto 27.2 % (20-44); Mean Corpuscular HGB Conc 32 gm/dL (32-36); Mean Corpuscular Hemoglobin 29 pg (26-34); Mean Corpuscular Volume 93 fL (80-100); Monocytes Percent Auto 14.6 % (0.0-11.0); Neutrophils Absolute Auto 4.13 K/uL (1.7-7.0); Platelet Count* 145 K/uL (140-440); RDW Coefficient of Variation % 16.8 % (11.5-15.5); White Blood Count* 8.09 K/uL (4.50-11.00)
[2022-07-11 07:38] LABS: Slide Review Reflex No
[2022-07-11 07:41] LABS: Chloride* 116 mmol/L (96-114)
[2022-07-11 07:42] LABS: Potassium* 3.9 mmol/L (3.6-5.1); Sodium* 140 mmol/L (135-149)
[2022-07-11 07:44] LABS: Creatinine* 1.1 mg/dL (0.5-1.5); Est. Creatinine Clearance* 42.97; Estimated Glomerular Filt Rate 52 ml/min
[2022-07-11 07:45] LABS: Blood Urea Nitrogen* 20 mg/dL (7-30); Calcium* 7.7 mg/dL (8.4-10.6); Carbon Dioxide* 19 mmol/L (20-32); Glucose* 183 mg/dL (60-115)
[2022-07-11] MEDS: DULOXETINE 30 MG CAPSULE DR 60 MG PO (08:50)
[2022-07-11] MEDS: ATORVASTATIN CALCIUM 40 MG TABLET 20 MG PO (08:50)
[2022-07-11] MEDS: MIRTAZAPINE 15 MG TABLET PO (08:51)
[2022-07-11] MEDS: FUROSEMIDE 40 MG TABLET PO (08:51)
[2022-07-11] MEDS: SPIRONOLACTONE 100 MG TABLET PO (08:59)
[2022-07-11 10:57] VITALS: PULSE 81; RESP 14; TEMP 36.7
[2022-07-11 11:00] VITALS: BP 148/71; PULSE 99; RESP 18; TEMP 37.6; O2SAT 96
--- NOTE | 2022-07-11 12:29 | PM.DS1 ---
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 Needs guideline directed diuretic therapy. salt and fluid restriction. Recommend ongoing outpatient gastroenterology care. Classic manifestations: Fatigue, ascites, increasing INR, imaging findings of varices, gastropathy, portal hypertension, cognitive decline? Hepatic encephalopathy possible despite normal ammonia MELD 13 (normal sodium, creatine, elevated INR and TB) Patient underwent percutaneous liver biopsy on 04/20/2021. Path revealed steatohepatitis, characterized by: Moderate (55%) steatosis, Mild inflammatory activity (EZEKIEL activity score 4 out of 8 based on 2 points for steatosis, 1 point for inflammation and 1 point for ballooning. Fibrosis/Stage: Cirrhosis (stage 4 of 4) (2) Abdominal ascites: Status: Acute Problem details: 1 time dose of IV lasix -2/2 tachypnea. placing urinary catheter for accurate output measurement - transition to oral spironolactone/furosemide combination 2 gram sodium restriction/2L free water restriction 100 mg aldactone/40mg lasix PO q am Surgery recommends against paracentesis. No clinical evidence for bacterial peritonitis. Outpatient followup next week to adjust diuretic dose (3) H/O: GI bleed: Status: Acute Problem details: Duodenal ulcer; clipped. [facility]. May 2022. No blood products. IV octreotide, ppi. As an aside, Has known varices but good collaterals and has never had bleeding from them. (4) Mild cognitive impairment: Status: Chronic Problem details: Ammonia level normal tonight. As high as 45 in the summer of 2021. Poor candidate for lactulose as patient has chronic diarrhea. Repeat Ben Hill score Discharge planning discussion with family and patient about need for increasing supervision. I am concerned that her cognitive impairment may be progressive whether due to hepatic encephalopathy or onset of dementia of the Alzheimer's type. (5) Type 2 diabetes mellitus: Status: Chronic Problem details: Poor glucose control as an outpatient with both hyper and hypoglycemia episodes. With cognitive impairment uncertain how well the patient can manage her diabetes SSI/AccuChecks Tresiba and NovoLog - dosing is not clear on [id number] - OZEMPIC (pt family needs to bring in) needs SGLT2 initiation (6) Hypertension: Status: Chronic Problem details: amlodipine 2.5 mg daily, hydrochlorothiazide 25 mg daily, losartan 100 mg daily, Toprol-XL 10 mg daily - ALL ON HOLD aldactone/lasix combination starting 07/10/22. With cirrhosis patient will likely need less blood pressure medication. Outpatient followup to reassess. Avoid Eber and Arb and hydrochlorothiazide while using spironolactone and furosemide. (7) Portal hypertension: Status: Acute Problem details: albumin infusion last night. guideline directed therapy; GI consult needed (8) Acute blood loss anemia (ABLA): Status: Acute Problem details: From May 2022 GI bleed. Stable tonight, 07/09/2022. At risk for clinically significant GI bleeding from known gastropathy and varices. Current hemoglobin 7.9. Stool guaiacs negative x3 since admission. Monitor for evidence of bleeding. High risk for bleeding from esophageal varices. DS: Summary Hospital Course Hospital Course: 76-year-old female with SHIPMAN cirrhosis present this with increased fatigue, dyspnea, weight gain, ascites. Patient has longstanding history of SHIPMAN causing cirrhosis. This has been relatively asymptomatic until the past few months when she has developed ascites. She was hospitalized a month ago at [place] with a GI bleed due to a duodenal ulcer. Esophageal varices were identified at that time as well but they were not bleeding. She has had a decline since that time with progressive fatigue and sleepiness, increasing dyspnea and ascites. At the time of admission it appeared that her symptoms are primarily a complication of cirrhosis causing ascites and fluid retention. She received diuresis with furosemide and spironolactone and felt much better with this treatment. Paracentesis was not performed as our surgeon did not feel that there was an adequate pocket of fluid to access. Evaluation also included assessment of cognitive impairment. She has previous history of cognitive impairment. Family thinks that she has had decline over the past year with also more sleepiness. Over last 2 days her sleepiness is much improved, she is much more alert and oriented. She had a Ben Hill of 18/30 today. Overall she reports feeling better including her breathing being back to normal. Her appetite is good. She continues to have chronic diarrhea. She has no other concerns. Status at Discharge Functional status at discharge: uses cane/walker Overall status at discharge: patient is progressing back to baseline Time Spent with Patient Time attestation: Total time spent providing and/or coordinating discharge services: Time spent: Greater than 30 minutes Exam Narrative: Exam Narrative: She is alert and appears in no distress. Mood and affect are bright. She is oriented to her circumstances. Respirations are clear to auscultation. Cardiovascular: S1, S2, regular rate and rhythm. No murmur gallop or rub. Abdomen: Bowel sounds active. Abdomen is soft. She has no tenderness. She has somewhat abdominal distension. Extremities with 1+ edema bilaterally. Const: Vital Signs, click to edit/add: Vital Signs - 24 hr 07/10/22 15:00 07/10/22 15:00 07/10/22 15:00 Temperature 99.7 F H Pulse Rate Pulse Rate [Left A pical] 84 Respiratory Rate 16 16 Blood Pressure [Le ft Arm] 153/60 H Pulse Oximetry 94 94 94 Oxygen Delivery Me thod Room Air Room Air Oxygen Flow Rate 07/10/22 15:00 07/10/22 15:00 07/10/22 19:00 Temperature 99.8 F H Pulse Rate 88 Pulse Rate [Left A pical] 84 85 Respiratory Rate 16 16 Blood Pressure [Le ft Arm] 182/71 H Pulse Oximetry 94 Oxygen Delivery Me thod Room Air Oxygen Flow Rate 07/10/22 23:00 07/10/22 23:00 07/10/22 23:00 Temperature Pulse Rate 81 Pulse Rate [Left A pical] Respiratory Rate 16 Blood Pressure [Le ft Arm] Pulse Oximetry 91 Oxygen Delivery Me thod Oxygen Flow Rate 07/10/22 23:00 07/10/22 23:00 07/11/22 02:59 Temperature 98.8 F 97.9 F Pulse Rate Pulse Rate [Left A pical] 84 79 Respiratory Rate 16 16 16 Blood Pressure [Le ft Arm] 122/54 L 174/86 H Pulse Oximetry 91 91 96 Oxygen Delivery Me thod Room Air Room Air Room Air Oxygen Flow Rate 2 2 2 07/11/22 07:00 07/11/22 07:00 07/11/22 07:00 Temperature 98.0 F Pulse Rate Pulse Rate [Left A pical] 93 Respiratory Rate 14 14 Blood Pressure [Le ft Arm] 167/70 H Pulse Oximetry 94 95 96 Oxygen Delivery Me thod Nasal Cannula Nasal Cannula Oxygen Flow Rate 2 2 07/11/22 07:00 07/11/22 07:00 07/11/22 10:57 Temperature 98.0 F Pulse Rate 81 81 Pulse Rate [Left A pical] 93 Respiratory Rate 14 14 Blood Pressure [Le ft Arm] Pulse Oximetry Oxygen Delivery Me thod Oxygen Flow Rate 07/11/22 11:00 Temperature 99.6 F Pulse Rate Pulse Rate [Left A pical] 99 Respiratory Rate 18 Blood Pressure [Le ft Arm] 148/71 H Pulse Oximetry 96 Oxygen Delivery Me thod Room Air Oxygen Flow Rate Documenting provider has reviewed patient's vital signs: yes DS: Data Data Completed and Pending Labs on day of discharge: Labs from last 24 hours 07/11/22 07/11/22 06:30 06:30 WBC 8.09 RBC 4.20 Hgb 12.3 Hct 39.0 MCV 93 MCH 29 MCHC 32 RDW Coeff of Annie 16.8 H Plt Count 145 Neut % (Auto) 51.0 Lymph % (Auto) 27.2 Wayne % (Auto) 14.6 H Eos % (Auto) 6.2 Baso % (Auto) 0.9 Neut # (Auto) 4.13 Lymph # (Auto) 2.20 Wayne # (Auto) 1.20 H Eos # (Auto) 0.50 Baso # (Auto) 0.07 Sodium 140 Potassium 3.9 Chloride 116 H Carbon Dioxide 19 L BUN 20 Creatinine 1.1 Estimated Creat Clear 42.97 Estimated GFR 52 Glucose 183 H Calcium 7.7 L C-Reactive Protein 1.0 Preliminary micro results at discharge 07/09/22 17:30 Blood Culture - Preliminary Blood NO GROWTH AFTER 24 HOURS 07/09/22 17:35 Blood Culture - Preliminary Blood NO GROWTH AFTER 24 HOURS Discharge Plan Discharge Disposition: Home, Self-Care Date of Admission: 07/09/22 21:08 Attending Provider on Discharge: Robbi Villafuerte Consulting Providers: Ryland Orozco Primary Care Provider: Provider,Not a Local Condition: Improved Anticipated Discharge Date/Time: 07/11/22 11:00 Discharge Medications: New spironolactone 100 mg Tablet 100 mg PO DAILY Qty: 30 0RF Continued duloxetine 60 mg capsule,delayed release(DR/EC) 60 mg PO DAILY atorvastatin 40 mg tablet 20 mg PO HS furosemide [Lasix] 40 mg tablet 40 mg PO QAM Qty: 30 1RF loratadine 10 mg tablet 10 mg PO DAILY PRN Hold Instructions: unclear clobetasol 0.05 % solution 1 applic topical BID PRN Label Comments: APPLY TO SCALP DAILY FOR UP TO 2 WEEKS AT A TIME REPEAT NEEDED FOR FLARES triamcinolone acetonide 0.1 % cream 1 applic topical BID PRN Label Comments: APPLY TO AFFECTED AREA ON BODY TWICE A DAY FOR 2 WEEKS , TAKE 2 WEEKS OFF THEN REPEAT NEEDED FOR FLARES ondansetron HCl 8 mg tablet 8 mg PO TID PRN (Reason: nausea and vomiting) Qty: 30 2RF insulin degludec [Tresiba FlexTouch U-200] 200 unit/mL (3 mL) insulin pen 50 unit subcut HS mirtazapine [Remeron] 15 mg tablet 15 mg PO HS metoprolol succinate 50 mg tablet extended release 24 hr 50 mg PO DAILY pantoprazole 40 mg tablet,delayed release (DR/EC) 40 mg PO BID polyethylene glycol 3350 17 gram powder in packet 17 g PO DAILY insulin aspart U-100 [Novolog Flexpen U-100 Insulin] 100 unit/mL (3 mL) insulin pen 25 unit subcut TIDWM hyoscyamine sulfate 0.125 mg tablet 0.125 - 0.25 mg PO BID-QID PRN (Reason: for abdominal cramping) Qty: 30 0RF diphenoxylate-atropine [Lomotil] 2.5-0.025 mg tablet 1 tab PO BID-TID Qty: 90 2RF Discontinued losartan 100 mg tablet 100 mg PO DAILY amlodipine 2.5 mg tablet 2.5 mg PO DAILY hydrochlorothiazide 25 mg tablet 25 mg PO DAILY Discharge Orders: Discharge Order (Routine); Ordered 07/11/22 Ordered By: Robbi Villafuerte Patient Education: Spironolactone (By mouth), Cirrhosis (DC), Ascites (DC) Additional Instructions: Make a follow-up appointment with your roadmaster at next available appointment Discharge Diet: 2 gm Sodium Follow Up Appointments: Toribio Robledo MD [Staff Physician] - 08/31/22 2:00 pm Wei Johnson MD [Staff Physician] - 07/19/22 10:00 am (Lab visit only. Blood test to check your basic metabolic panel and CBC.) Provider,Not a Local [Primary Care Provider] - (See your doctor next week. He will need blood test to check your basic metabolic panel and CBC.) Forms: [employer] Info Instructions
--- NOTE | 2022-07-11 13:58 | PC.NURSE ---
Addendum entered by Liseth Smith RN 07/11/22 14:06: Blas catheter was removed with tip intact and pt voided since removal. Original Note: Discharge-- Pleasant and cooperative, alert and oriented but forgetful patient was discharged to home via wheelchair at approximately 1400. VSS and highest temp 99.3F. SPO2 maintained >94% on RA while patient awake. She denied any pain. LS CTA. Telemetry showed NSR. Faint murmur noted. She denied nausea and ate 100% of breakfast and lunch without difficulty. BS 199 and 282 and pt was given insulin per sliding scale. She was up to BR with SBA and tolerated it fairly well. Discharge education was provided including diagnosis info, symptoms to report, medications and follow up plan. Family inquired about meeting with social media manager and doctor and social media manager were advised. No further questions asked. SL was removed with tip intact.
--- NOTE | 2022-07-11 14:39 | PC.SOCIAL ---
Discharge planning: At request of family, met with the regarding information on hiring group home counselor care. Provided family with resource list for [employer] Strategist Care and answered questions. Also provided with written information on the [facility] and services they provide. Family with pleased with information provided and are aware of how to contact social workers with additional questions or for resources as needed.
== END 2022-07-11 14:06 | disposition home or self-care (01) | DRG 433 ==
LOC: ED 15:27 → MEDSURG 17:02
PROVIDERS: Family Medicine; Admitting Provider Family Medicine; Emergency Provider Emergency Medicine; Visit Provider Family Medicine
DX: K74.69 Other cirrhosis of liver (principal); D62 Acute posthemorrhagic anemia; R18.8 Other ascites; K76.6 Portal hypertension; F33.9 Major depressive disorder, recurrent, unspecified; I85.10 Secondary esophageal varices without bleeding; K75.81 Nonalcoholic steatohepatitis (NASH); G31.84 Mild cognitive impairment of uncertain or unknown etiology; K76.82 Hepatic encephalopathy; K52.9 Noninfective gastroenteritis and colitis, unspecified; I11.0 Hypertensive heart disease with heart failure; I50.810 Right heart failure, unspecified; E11.65 Type 2 diabetes mellitus with hyperglycemia; E11.649 Type 2 diabetes mellitus with hypoglycemia without coma; Z79.4 Long term (current) use of insulin; K31.89 Other diseases of stomach and duodenum; G47.33 Obstructive sleep apnea (adult) (pediatric); G47.00 Insomnia, unspecified; E78.5 Hyperlipidemia, unspecified; F17.210 Nicotine dependence, cigarettes, uncomplicated
CPT/HCPCS: 36415; 71045; 71260; 74177; 80048; 80053; 80061; 80076; 81001; 82140; 82330; 82803; 82962; 83036; 83540; 83550; 83605; 83690; 83735; 83880; 84145; 84443; 84484; 84550; 85025; 85027; 85379; 85610; 85730; 86140; 86850; 86900; 86901; 87040; 87086; 87186; 87635; 93005; 94761; 97116; 97161; 97162; 97165; 97535; 99285; A9270; C9113; J1940; P9047; Q9967; S4990

== ENCOUNTER 2022-07-19 11:44 | Outpatient (CLI) | payer MEDICARE, BC, SELFPAY ==
[2022-07-19 14:22] LABS: Basophils Absolute Auto 0.08 K/uL (0.00-0.30); Basophils Percent Auto 1.1 % (0.0-3.0); Eosinophils Absolute Auto 0.27 K/uL (0.00-0.50); Eosinophils Percent Auto 3.7 % (0.0-7.0); Hematocrit 30.4 % (33.0-51.0); Hemoglobin* 9.7 gm/dL (12.0-16.0); Lymphocytes Absolute Auto 2.07 K/uL (0.90-2.90); Lymphocytes Percent Auto 28.7 % (20-44); Mean Corpuscular HGB Conc 32 gm/dL (32-36); Mean Corpuscular Hemoglobin 29 pg (26-34); Mean Corpuscular Volume 91 fL (80-100); Monocytes Percent Auto 15.7 % (0.0-11.0); Neutrophils Absolute Auto 3.67 K/uL (1.7-7.0); Neutrophils Percent Auto 50.8 % (42.0-72.0); Platelet Count* 311 K/uL (140-440); RDW Coefficient of Variation % 15.6 % (11.5-15.5); Red Blood Count 3.35 m/uL (4.00-5.20); White Blood Count* 7.22 K/uL (4.50-11.00)
[2022-07-19 14:34] LABS: Slide Review Reflex No
[2022-07-19 14:35] LABS: Albumin* 3.7 g/dL (3.3-5.0); Chloride* 113 mmol/L (96-114)
[2022-07-19 14:36] LABS: Sodium* 137 mmol/L (135-149)
[2022-07-19 14:38] LABS: Alkaline Phosphatase* 271 U/L (40-150); Aspartate Amino Transferase* 55 U/L (12-35); Bilirubin Total* 1.3 mg/dL (0.1-1.5); Blood Urea Nitrogen* 30 mg/dL (7-30); Carbon Dioxide* 15 mmol/L (20-32); Creatinine* 1.5 mg/dL (0.5-1.5); Estimated Glomerular Filt Rate 36 ml/min; Total Protein* 7.8 g/dL (6.0-8.3)
[2022-07-19 14:39] LABS: Alanine Aminotransferase* 30 U/L (4-35); Calcium* 8.3 mg/dL (8.4-10.6)
[2022-07-19 14:45] LABS: Potassium* 6.7 mmol/L (3.6-5.1)
[2022-07-19 14:46] LABS: Glucose* 379 mg/dL (60-115)
== END 2022-07-19 11:45 | disposition home or self-care (01) ==
PROVIDERS: PCP Family Medicine; Visit Provider Family Medicine
DX: K74.60 Unspecified cirrhosis of liver (principal); K75.81 Nonalcoholic steatohepatitis (NASH)
CPT/HCPCS: 80053; 84132; 85025

== ENCOUNTER 2022-07-20 23:28 | Outpatient (CLI) | payer MEDICARE, BC, SELFPAY | END 2022-07-20 23:29 | disposition home or self-care (01) | LOC: AMB 07-21 02:30 | PROVIDERS: PCP Family Medicine; Visit Provider Family Medicine | DX: R41.82 Altered mental status, unspecified (principal) | CPT/HCPCS: A0425; A0427 ==

== ENCOUNTER 2022-07-21 00:10 | Emergency (ER) | payer MEDICARE, BC, SELFPAY ==
[2022-07-21] VITALS (9 sets, daily range): BP systolic 160–192; BP diastolic 61–78; PULSE 57–68; RESP 16–18; TEMP 36.5; O2SAT 93–97; BMI 24.3
[2022-07-21 01:03] LABS: Basophils Absolute Auto 0.07 K/uL (0.00-0.30); Basophils Percent Auto 0.7 % (0.0-3.0); Eosinophils Absolute Auto 0.48 K/uL (0.00-0.50); Eosinophils Percent Auto 5.1 % (0.0-7.0); Hematocrit 29.2 % (33.0-51.0); Hemoglobin* 9.4 gm/dL (12.0-16.0); Immature Granulocytes Abs Auto 0.01 K/uL (0.00-0.30); Immature Granulocytes Pct Auto 0.1 %; Lymphocytes Absolute Auto 2.94 K/uL (0.90-2.90); Lymphocytes Percent Auto 30.9 % (20-44); Mean Corpuscular HGB Conc 32 gm/dL (32-36); Mean Corpuscular Hemoglobin 29 pg (26-34); Mean Corpuscular Volume 90 fL (80-100); Monocytes Percent Auto 16.7 % (0.0-11.0); Neutrophils Absolute Auto 4.41 K/uL (1.7-7.0); Neutrophils Percent Auto 46.5 % (42.0-72.0); Platelet Count* 316 K/uL (140-440); RDW Coefficient of Variation % 15.6 % (11.5-15.5); Red Blood Count 3.26 m/uL (4.00-5.20)
[2022-07-21 01:08] LABS: Slide Review Reflex No
--- NOTE | 2022-07-21 01:13 | ED.AMS ---
HPI - Altered Mental Status General Date Seen: 07/21/22 Chief Complaint: Altered Mental Status Stated Complaint: Covid + Altered Mental Status Time Seen by Provider: 07/21/22 00:15 Source: patient and family Mode of arrival: EMS History of Present Illness HPI narrative: this very nice 76-year-old female presents from residence, with a history of having altered cognition for the last 24-36 hours. Her family says she has been more sleepy than normal, and they had a hard time arousing her and almost seem like she was in there when they were talking to her. Although they do admit to me once they woke her up in the ambulance was there she seemed totally back to normal. She does have a history of COVID now is on day 6. She did take Paxlovid for this, and did very well. she has had no fevers chills chest pain, she tells me that she does not really know why she is here today, just to appease her family, no history of falls, denies any dysuria frequency nausea vomiting, chest pain or shortness of breath, she does have a history of end-stage liver disease, secondary to SHIPMAN she was recently hospitalized here, for ascites. Glucose in the ambulance was 158. MD complaint: altered mental status and decreased responsiveness Onset (ago): day(s) Timing confirmed by: family member Severity: moderate Consistency of symptoms: waxing and waning Associated symptoms: denies other symptoms Related Data Home Medications Medication Instructions Recorded Confirmed duloxetine 60 mg capsule,delayed 60 mg PO DAILY 01/13/22 07/19/22 release atorvastatin 40 mg tablet 20 mg PO HS 02/18/22 07/19/22 clobetasol 0.05 % scalp solution 1 applic topical BID PRN 05/24/22 07/19/22 triamcinolone acetonide 0.1 % 1 applic topical BID PRN 05/24/22 07/19/22 topical cream mirtazapine 15 mg tablet (Remeron) 15 mg PO HS 07/09/22 07/19/22 insulin aspart U-100 100 unit/mL 25 unit subcut TIDWM 07/10/22 07/19/22 (3 mL) subcutaneous pen (Novolog FlexPen U-100 Insulin aspart) metoprolol succinate 50 mg 50 mg PO DAILY 07/10/22 07/19/22 tablet,extended release 24 hr pantoprazole 40 mg tablet,delayed 40 mg PO BID 07/10/22 07/19/22 release Previous Rx's Medication Instructions Recorded furosemide 40 mg tablet (Lasix) 40 mg PO QAM #30 tabs 04/01/22 hyoscyamine sulfate 0.125 mg tablet 0.125 - 0.25 mg PO BID-QID PRN for 05/11/22 abdominal cramping #30 tabs ondansetron HCl 8 mg tablet 8 mg PO TID PRN nausea and 05/24/22 vomiting #30 tabs diphenoxylate-atropine 2.5 1 tab PO BID-TID #90 tabs 06/01/22 mg-0.025 mg tablet (Lomotil) spironolactone 100 mg tablet 100 mg PO DAILY #30 tabs 07/11/22 hydroxyzine HCl 25 mg tablet 25 mg PO QID PRN itching #40 tabs 07/19/22 insulin degludec 200 unit/mL (3 50 unit (0.25 mL) subcut HS #9 mL 07/19/22 mL) subcutaneous pen (Tresiba FlexTouch U-200 insulin) amoxicillin 250 mg-potassium 1 tab PO BID #14 tabs 07/21/22 clavulanate 125 mg tablet Allergies Allergy/AdvReac Type Severity Reaction Status Date / Time Cephalosporins Allergy Mild Unknown Verified 07/19/22 10:52 gadodiamide Allergy Mild Unknown Verified 07/19/22 10:52 Sulfa (Sulfonamide Allergy Mild Unknown Verified 07/19/22 10:52 Antibiotics) cefaclor [From Ceclor] Allergy Unknown Unknown Verified 07/19/22 10:52 Iodinated contrast media Allergy Unknown Unknown Uncoded 07/19/22 10:52 (substance) Review of Systems Status of ROS: Reports: 10 or more systems reviewed and unremarkable except as noted in History and below [facility] Medical History Abdominal ascites Acute blood loss anemia (ABLA) COVID Dupuytren's contracture of both hands (12/25/13) Generalized pruritus H/O: GI bleed History of colon polyps (03/10/20) History of solitary pulmonary nodule Hyperlipidemia Hypertension Insomnia 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 Major depression, recurrent Mild cognitive impairment Obstructive sleep apnea Osteopenia Portal hypertension Sensorineural hearing loss Tobacco abuse Type 2 diabetes mellitus Surgical History History of arthroscopy of shoulder History of cholecystectomy (1984) History of hysterectomy History of oophorectomy (1997) History of resection of pancreas (1984) History of vaginal hysterectomy (1997) Status post cholecystectomy Family History Other Colon cancer Diabetes Stroke Social History Narrative: , 3 kids, smoker, retired, cognitive impairment not a drinker Highest level of school completed/degree received: Associate degree: occupational, technical, vocational program Smoking Status: Current every day smoker What tobacco products do you use: cigarettes How often do you have a drink containing alcohol: never AUDIT-C Alcohol total score: 0 Non-prescribed substance use: denies use Caffeine: Yes (2 cup/day) Little interest or pleasure in doing things: several days Feeling down, depressed, or hopeless: several days service: No Exam Narrative: Exam Narrative: I find a delightful lady in room 5 she is in no apparent distress, she is answer my questions and alert and oriented x3. I was able to review her recent admission here, and her recent follow-up with her primary care physician 2 days ago. No evidence of trauma over the head or neck region or anywhere else on her body.Pupils are equal round reactive to light there is no nystagmus she tracks normally TMs are normal, oropharynx is normal, cranial nerves 3-12 are normal, she moves extremities well, there is no asterixis I can see, chest is clear bilaterally with no wheezing crackles noted, easy respirations heart sounds are normal, her abdomen is protuberant, and some shifting dullness but no tenderness at all on palpation. Bowel sounds are normal. She moves all extremities independently and well. Const: Vital Signs, click to edit/add: Vital Signs - 24 hr 07/21/22 00:16 07/21/22 00:35 07/21/22 02:20 Temperature 97.7 F Pulse Rate 63 Pulse Rate [Right Pulse Oximeter] 68 Respiratory Rate 18 16 Blood Pressure 160/61 H Blood Pressure [Ri ght Upper Arm] 164/68 H Pulse Oximetry 95 96 Oxygen Delivery Me thod Room Air 07/21/22 01:11 07/21/22 01:30 07/21/22 01:32 Temperature Pulse Rate 62 61 62 Pulse Rate [Right Pulse Oximeter] Respiratory Rate Blood Pressure 192/78 H Blood Pressure [Ri ght Upper Arm] Pulse Oximetry 97 96 95 Oxygen Delivery Me thod 07/21/22 02:00 07/21/22 02:02 07/21/22 02:03 Temperature Pulse Rate 65 57 L 57 L Pulse Rate [Right Pulse Oximeter] Respiratory Rate Blood Pressure 170/66 H Blood Pressure [Ri ght Upper Arm] Pulse Oximetry 95 93 95 Oxygen Delivery Me thod Documenting provider has reviewed patient's vital signs: yes Course Course Hospital Course: I met with her son and daughter, they take care of her, they had some concerns about her cognition but admitted to me that she seemingly was at baseline just before the ambulance took her. I think it would be reasonable to do some blood test which I discussed with them and they are in agreement. Also think checking her urine to make sure she does not have a UTIs important, I do not think at this point we need to do a CT of her head, Reevaluation(s) Reevaluation #1: laboratory tests show evidence of a UTI, pneumonia level is also elevated. And 145, this is likely due to the UTI, causing worsening of her chronic liver issues. I did offer to admit her to the hospital, but she would like to go home, and family seems okay, they have lactulose at home and will give this to her t.i.d., I initially was going to give her Cipro, but I think there is too many contraindications to the Cipro, with her liver disease current medications and also the renal insufficiency, I think a better choice would be Augmentin, 250 mg p.o. b.i.d. for the next 7 days, they agreed to bring her back if she has worsening, Vital Signs Vital signs: Initial Vital Signs Temperature 97.7 F 07/21/22 00:16 Temperature Source Temporal Artery Scan 07/21/22 00:16 Pulse Rate 68 07/21/22 00:16 Respiratory Rate 18 07/21/22 00:16 Blood Pressure 164/68 H 07/21/22 00:16 Blood Pressure Mean 100 07/21/22 00:16 Blood Pressure Position Supine 07/21/22 00:16 Pulse Oximetry 95 07/21/22 00:16 Oxygen Delivery Method 07/21/22 00:16 Vital Signs Temperature 97.7 F 07/21/22 00:16 Pulse Rate 68 07/21/22 00:16 Respiratory Rate 18 07/21/22 00:16 Blood Pressure 164/68 H 07/21/22 00:16 Pulse Oximetry 95 07/21/22 00:16 Oxygen Delivery Method 07/21/22 00:16 Temperature 97.7 F 07/21/22 00:16 Pulse Rate 57 L 07/21/22 02:03 Respiratory Rate 16 07/21/22 02:20 Blood Pressure 170/66 H 07/21/22 02:02 Pulse Oximetry 95 07/21/22 02:03 Oxygen Delivery Method 07/21/22 00:16 MDM - Altered Mental Status MDM Narrative Medical decision making narrative: Multiple differential diagnoses were considered for altered mental status. The life-threatening differential diagnosis considered include: Meningitis/encephalitis, bacteremia, subdural, cerebrovascular accident, SAH, and hypertensive encephalopathy. Other differential diagnosis included include medication effect, hypoxia, hypoglycemia, hypercalcemia, hypo or hypernatremia, hypothyroidism, hepatic encephalopathy, carbon monoxide poisoning, UTI, pneumonia, depression, seizure, as well as other etiologies. Differential Diagnosis Differential diagnosis: Likely alcoholic intoxication, altered mental status, delirium, dementia, hypoglycemia, hyponatremia, subarachnoid hemorrhage and sepsis Medical Records Attestation: I reviewed the patient's medical records. Lab Data Attestation: I reviewed the patient's lab results. Labs: Lab Results 07/21/22 07/21/22 07/21/22 Range/Units 00:55 00:55 00:55 WBC 9.50 (4.50-11.00) K/uL RBC 3.26 L (4.00-5.20) m/uL Hgb 9.4 L (12.0-16.0) gm/dL Hct 29.2 L (33.0-51.0) % MCV 90 (80-100) fL MCH 29 (26-34) pg MCHC 32 (32-36) gm/dL RDW Coeff of Annie 15.6 H (11.5-15.5) % Plt Count 316 (140-440) K/uL Neut % (Auto) 46.5 (42.0-72.0) % Lymph % (Auto) 30.9 (20-44) % Cannon % (Auto) 16.7 H (0.0-11.0) % Eos % (Auto) 5.1 (0.0-7.0) % Baso % (Auto) 0.7 (0.0-3.0) % Neut # (Auto) 4.41 (1.7-7.0) K/uL Lymph # (Auto) 2.94 H (0.90-2.90) K/uL Cannon # (Auto) 1.60 H (0.00-0.90) K/UL Eos # (Auto) 0.48 (0.00-0.50) K/uL Baso # (Auto) 0.07 (0.00-0.30) K/uL Sodium 141 (135-149) mmol/L Potassium 4.9 (3.6-5.1) mmol/L Chloride 119 H (96-114) mmol/L Carbon Dioxide 13 L (20-32) mmol/L BUN 35 H (7-30) mg/dL Creatinine 1.8 H (0.5-1.5) mg/dL Estimated Creat Clear 26.26 Estimated GFR 29 ml/min Glucose 93 (60-115) mg/dL Calcium 8.7 (8.4-10.6) mg/dL Ammonia 125.0 H (13.1-30.0) umol/L Urine Color (Yellow) Urine Appearance (Clear) Urine pH (5.0-8.5) Ur Specific [place] (1.000-1.030) Urine Protein (Negative) Urine Glucose (UA) (Negative) Urine Ketones (Negative) Urine Blood (Negative) Urine Nitrite (Negative) Urine Bilirubin (Negative) Urine Urobilinogen (0.2-1.0) Ur Leukocyte Esterase (Negative) Urine RBC (0-2) Urine WBC (0-5) Ur Squamous Epith Cells (None-Few) Amorphous Sediment (None) Urine Bacteria (None) Urine Mucus (None) 07/21/22 Range/Units 01:10 WBC (4.50-11.00) K/uL RBC (4.00-5.20) m/uL Hgb (12.0-16.0) gm/dL Hct (33.0-51.0) % MCV (80-100) fL MCH (26-34) pg MCHC (32-36) gm/dL RDW Coeff of Annie (11.5-15.5) % Plt Count (140-440) K/uL Neut % (Auto) (42.0-72.0) % Lymph % (Auto) (20-44) % Cannon % (Auto) (0.0-11.0) % Eos % (Auto) (0.0-7.0) % Baso % (Auto) (0.0-3.0) % Neut # (Auto) (1.7-7.0) K/uL Lymph # (Auto) (0.90-2.90) K/uL Cannon # (Auto) (0.00-0.90) K/UL Eos # (Auto) (0.00-0.50) K/uL Baso # (Auto) (0.00-0.30) K/uL Sodium (135-149) mmol/L Potassium (3.6-5.1) mmol/L Chloride (96-114) mmol/L Carbon Dioxide (20-32) mmol/L BUN (7-30) mg/dL Creatinine (0.5-1.5) mg/dL Estimated Creat Clear Estimated GFR ml/min Glucose (60-115) mg/dL Calcium (8.4-10.6) mg/dL Ammonia (13.1-30.0) umol/L Urine Color Yellow (Yellow) Urine Appearance Slightly Cloudy A (Clear) Urine pH 5.5 (5.0-8.5) Ur Specific [place] 1.020 (1.000-1.030) Urine Protein Negative (Negative) Urine Glucose (UA) Negative (Negative) Urine Ketones Negative (Negative) Urine Blood Negative (Negative) Urine Nitrite Positive A (Negative) Urine Bilirubin Negative (Negative) Urine Urobilinogen 0.2 (0.2-1.0) Ur Leukocyte Esterase 1+ A (Negative) Urine RBC 2-5 A (0-2) Urine WBC 10-25 A (0-5) Ur Squamous Epith Cells Moderate A (None-Few) Amorphous Sediment Few A (None) Urine Bacteria Moderate A (None) Urine Mucus Few A (None) Discharge Plan Discharge Clinical Impression: Urinary tract infection, Chronic renal insufficiency, stage II (mild), Chronic liver failure, Serum ammonia increased, Altered mental status Patient Disposition: Home w/ Parent or Adult Condition: Stable Instructions: Acute Liver Failure (DC), Chronic Kidney Disease (ED), Altered Mental Status (ED), Urinary Tract Infection in Older Adults (ED) Additional Instructions: home rest use of medication as directed, recommend starting lactulose 3 times a day, return here if worsening signs and symptoms of cognition, fevers chills, nausea vomiting or other issues. Otherwise I recommend follow-up with your primary care physician in 5 days or so. Prescriptions: New amoxicillin-pot clavulanate 250-125 mg tablet 1 tab PO BID Qty: 14 0RF No Action duloxetine 60 mg capsule,delayed release(DR/EC) 60 mg PO DAILY atorvastatin 40 mg tablet 20 mg PO HS furosemide [Lasix] 40 mg tablet 40 mg PO QAM Qty: 30 1RF clobetasol 0.05 % solution 1 applic topical BID PRN Label Comments: APPLY TO SCALP DAILY FOR UP TO 2 WEEKS AT A TIME REPEAT NEEDED FOR FLARES triamcinolone acetonide 0.1 % cream 1 applic topical BID PRN Label Comments: APPLY TO AFFECTED AREA ON BODY TWICE A DAY FOR 2 WEEKS , TAKE 2 WEEKS OFF THEN REPEAT NEEDED FOR FLARES ondansetron HCl 8 mg tablet 8 mg PO TID PRN (Reason: nausea and vomiting) Qty: 30 2RF insulin degludec [Tresiba FlexTouch U-200] 200 unit/mL (3 mL) insulin pen 50 unit subcut HS Qty: 9 5RF hydroxyzine HCl 25 mg tablet 25 mg PO QID PRN (Reason: itching) Qty: 40 1RF mirtazapine [Remeron] 15 mg tablet 15 mg PO HS metoprolol succinate 50 mg tablet extended release 24 hr 50 mg PO DAILY pantoprazole 40 mg tablet,delayed release (DR/EC) 40 mg PO BID insulin aspart U-100 [Novolog FlexPen U-100 Insulin] 100 unit/mL (3 mL) insulin pen 25 unit subcut TIDWM spironolactone 100 mg Tablet 100 mg PO DAILY Qty: 30 0RF hyoscyamine sulfate 0.125 mg tablet 0.125 - 0.25 mg PO BID-QID PRN (Reason: for abdominal cramping) Qty: 30 0RF diphenoxylate-atropine [Lomotil] 2.5-0.025 mg tablet 1 tab PO BID-TID Qty: 90 2RF Follow Up/Referrals: Wei Johnson MD [Primary Care Provider] - Stand Alone Forms: [employer] Info Instructions
[2022-07-21 01:14] LABS: Chloride* 119 mmol/L (96-114); Potassium* 4.9 mmol/L (3.6-5.1); Sodium* 141 mmol/L (135-149)
[2022-07-21 01:16] LABS: Appearance Urine Slightly Cloudy (Clear); Bilirubin Urine Negative (Negative); Blood Urine Negative (Negative); Color Urine Yellow (Yellow); Glucose Urine Negative (Negative); Ketones Urine Negative (Negative); Leukocyte Esterase Urine 1+ (Negative); Nitrite Urine Positive (Negative); Protein Urine Negative (Negative); Urobilinogen Urine 0.2 (0.2-1.0); pH Urine 5.5 (5.0-8.5)
[2022-07-21 01:17] LABS: Blood Urea Nitrogen* 35 mg/dL (7-30); Carbon Dioxide* 13 mmol/L (20-32); Creatinine* 1.8 mg/dL (0.5-1.5); Est. Creatinine Clearance* 26.26; Estimated Glomerular Filt Rate 29 ml/min
[2022-07-21 01:18] LABS: Calcium* 8.7 mg/dL (8.4-10.6); Glucose* 93 mg/dL (60-115)
[2022-07-21 01:22] LABS: Amorphous Sediment Urine Few; Bacteria Urine Moderate; Mucus Urine Few; Squamous Epithelial Cell Urine Moderate (None-Few)
[2022-07-21] MEDS: AMOXICILLIN/CLAVULANATE 500 mg/125 mg TABLET PO (02:11)
== END 2022-07-21 02:20 | disposition home or self-care (01) ==
PROVIDERS: Emergency Provider Family Medicine; PCP Family Medicine
DX: N39.0 Urinary tract infection, site not specified (principal); N18.2 Chronic kidney disease, stage 2 (mild); R41.82 Altered mental status, unspecified
CPT/HCPCS: 36415; 80048; 81001; 82140; 85025; 87086; 87186; 99284; A9270